=== PATIENT | male | born 1945 | race Caucasian/White ===

== ENCOUNTER → 2020-04-18 13:48 | Outpatient (BNVA) | payer MEDICARE, BC, SELFPAY | PROVIDERS: PCP Internal Medicine; Visit Provider Internal Medicine Cardiovascular Disease | DX: I48.0 Paroxysmal atrial fibrillation (principal) | CPT/HCPCS: 93005; 99212 ==

== ENCOUNTER → 2020-08-25 13:16 | Outpatient (BNVA) | payer MEDICARE, BC, SELFPAY | PROVIDERS: PCP Internal Medicine; Visit Provider Urology | DX: R33.9 Retention of urine, unspecified (principal); R39.12 Poor urinary stream | CPT/HCPCS: 99212 ==

== ENCOUNTER → 2021-04-05 12:57 | Outpatient (REF) | payer MEDICARE, BC, SELFPAY ==
--- NOTE | 2021-04-05 12:59 | CA_ITS ---
Transthoracic Echocardiogram Patient (Last, First, Middle): Evan Mar, Gender: Male Date of : 1945 Age: 75 Procedure Date: 04/05/2021 Procedure Type: Transthoracic Echocardiogram Location: OP Height: 177.8 cm Weight: 56.7 kg BSA: 1.71 m2 Heart Rate: bpm BP: 103 / 63 mmHg Hydrogenation Still Operator: TRES Referring MD: Riley Lehman MD Account General Manager: Riley Lehman MD Symptoms: I48.0 - Paroxysmal atrial fibrillation Study Quality: Fair ECG Rhythm: Sinus Conclusions: - Essentially normal study Findings Left Ventricle Normal left ventricular size, thickness, and systolic function. The visually estimated ejection fraction is between 60-65%. Spectral Doppler is indicative of a normal filling pattern. Right Ventricle Normal right ventricular cavity size and systolic function. Atria Both atria are normal in size. Interatrial shunt cannot be excluded. Aortic Valve Normal aortic valve structure and function. There is no aortic valve stenosis. There is no aortic valve regurgitation. Mitral Valve There is mild anterior and posterior mitral leaflet thickening. There is trace mitral valve regurgitation. There is no mitral valve stenosis. Pulmonic Valve The pulmonic valve was not well visualized. Tricuspid Valve Likely normal tricuspid valve structure and function. There is trace tricuspid valve regurgitation. The right ventricular systolic pressure is normal. The right ventricular systolic pressure is 27 mmHg. Normal right atrial pressure. There is no evidence of pulmonary hypertension. Great Vessels All visible segments of the aorta are normal in size. The pulmonary artery was not well visualized. Venous The inferior vena cava is mildly dilated and collapses greater than 50% with inspiration. Pericardium/Pleural There is no evidence of pericardial effusion. Prior Study Comparison No significant change compared to prior study dated: 12/24/2017. Measurements 2D Linear Measurements IVSd: 0.96 0.6-0.9/0.6-1.0 cm LVIDd: 4.24 3.9-5.3/4.2-5.9 cm LVIDd Index: 2.48 2.4-3.2/2.2-3.1 cm/m2 LVIDs: 2.54 2.0-3.6 cm LVPWd: 0.91 0.7-1.1 cm Ao Root: 3.80 2.1-3.5 cm LA Diam: 2.50 2.7-3.8/3.0-4.0 cm LAIDs Index: 1.46 1.5-2.3 cm/m2 LV Mass: 158.18 67-162/88-224 g LV Mass Index: 92.50 43-95/49-115 g/m2 LVOT Diam: 2.20 3.0+(-)1.3 cm 2D Systolic Function EF 4C: 64.10 >55% EF 2C: 62.60 >55% EF BiP: 63.10 >55% Mitral Valve MV Pk E: 0.68 MV PK A: 0.48 MV Decel Time: 237.00 E/A: 1.40 E'Lateral: 11.40 E'Medial: 8.81 E/E' Med: 7.70 E/E' Lat: 5.90 PHT: 69.00 MVA PHT: 3.19 Decel [place]: 2.86 Aortic Valve AoV Pk Tray: 0.72 AoV Mn Tray: 0.52 AoV VTI: 0.18 AoV Pk Grad: 2.00 Aov Mn Grad: 1.00 JAVED Cont.VTI: 2.80 LVOT LVOT Pk Tray: 0.63 LVOT Mn Tray: 0.42 LVOT VTI: 0.13 LVOT Pk Grad: 2.00 LVOT Mn Grad: 1.00 LVOT Diam: 2.20 LVOT Area: 3.80 Diastolic Function MV Pk E: 0.68 MV Pk A: 0.48 E/A: 1.40 E'Medial: 8.81 E/E' Med: 7.70 E' Laterial: 11.40 E/E' Lat: 5.90 Right Ventricle TAPSE (mm): 23.30 TVS' Tray: 12.00 Tricuspid Valve TR Pk Tray: 2.20 TR Pk Grad: 19.00 RA Press: 8.00 RVSP: 27.00 Great Vessels Aorta Ao Root-2D: 3.80 2.0-3.7 cm Ao Asc: 3.60 2.1-3.4 cm Ao Arch: 3.30 Updated in Other Vendor System with Status of Final Riley Lehman MD electronically signed on 04/06/2021 12:52:47 PM with status of Final
== END ==
LOC: HO.CARD 12:57
PROVIDERS: Visit Provider Internal Medicine Cardiovascular Disease
DX: I48.0 Paroxysmal atrial fibrillation (principal)
CPT/HCPCS: 93306

== ENCOUNTER → 2021-04-19 14:08 | Outpatient (BNVA) | payer MEDICARE, BC, SELFPAY | PROVIDERS: PCP Internal Medicine; Referring Provider Internal Medicine; Visit Provider Internal Medicine Cardiovascular Disease | DX: I48.0 Paroxysmal atrial fibrillation (principal); Z79.899 Other long term (current) drug therapy | CPT/HCPCS: 93005; 99212 ==

== ENCOUNTER 2021-07-25 08:56 | Outpatient (REF) | payer MEDICARE, BC, SELFPAY ==
[2021-07-25 11:05] LABS: MANUAL DIFF FLAG NO
[2021-07-25 11:34] LABS: Appearance Urine CLEAR; Color Urine YELLOW; Glucose Urine UA NEG (NEG); Leukocyte Esterase Urine NEG (NEG); Nitrite Urine NEG (NEG); Urine Blood NEG (NEG); Urine Ketones NEG (NEG); Urine Protein NEG (NEG-TRACE)
[2021-07-25 11:39] LABS: Alanine Aminotransferase 23 U/L (0-40); Albumin Level 4.1 g/dL (3.5-5.0); Alkaline Phosphatase 77 U/L (39-117); Anion Gap 10 (12-20); Aspartate Amino Transferase 25 U/L (5-37); Bilirubin Total 0.6 mg/dL (0.0-1.0); Blood Urea Nitrogen 17 mg/dL (9-16); Calcium 9.4 mg/dL (8.4-10.2); Carbon Dioxide 28 mmol/L (22-29); Chloride 105 mmol/L (96-108); Cholesterol 213 mg/dL; Estimated Glomerular Filt Rate > 60; Glucose Fasting 95 mg/dL (60-99); HDL Cholesterol 64 mg/dL; LDL Cholesterol Calculated 137 mg/dl; Sodium 139 mmol/L (135-145); Total Protein 6.5 g/dL (6.5-8.0); Triglycerides 62 mg/dL
[2021-07-25 11:42] LABS: Basophils Percent Auto 0.7 % (0-2); Eosinophils Absolute Auto 0.2 X10*3/uL (0.0-0.4); Eosinophils Percent Auto 4.3 % (0-4); Hematocrit 41.8 % (42.0-52.0); Hemoglobin 13.5 g/dl (14.0-18.0); Imm Gran Abs Auto 0.01 X10*3/uL (0.00-0.03); Imm Gran Pct Auto 0.2 % (0.0-0.4); Lymphocytes Absolute Auto 1.2 X10*3/uL (1.2-4.9); Lymphocytes Percent Auto 28.8 % (20-40); Mean Corpuscular HGB Conc 32.3 g/dl (31.0-36.0); Mean Corpuscular Volume 92.9 fL (80.0-98.0); Mean Platelet Volume 10.7 fL (9.4-12.4); Monocytes Absolute Auto 0.6 X10*3/uL (0.1-1.2); Monocytes Percent Auto 14.5 % (2-11); Neutrophils Absolute Auto 2.2 x10*3/uL (2.0-8.3); Neutrophils Percent Auto 51.5 % (45-73); Platelet Count 195 X10*3/uL (160-400); Red Cell Distribution Width 12.7 % (11.0-16.0); White Blood Count 4.2 X10*3/uL (4.8-10.8)
[2021-07-25 12:01] LABS: Creatinine Urine 131.63 mg/dL; Microalbumin Urine < 5.0 mg/L
[2021-07-25 12:07] LABS: Prostate Specific Antigen Scr 0.39 ng/mL (<0.05-4.0)
== END 2021-07-25 08:57 | disposition home or self-care (01) ==
LOC: HO.WFDLDS 08:56
PROVIDERS: Visit Provider Family Medicine
DX: Z00.00 Encounter for general adult medical examination without abnormal findings (principal); I10 Essential (primary) hypertension; Z12.5 Encounter for screening for malignant neoplasm of prostate
CPT/HCPCS: 36415; 80053; 80061; 81003; 82043; 84153; 84443; 85025

== ENCOUNTER → 2022-04-08 15:07 | Outpatient (BNVA) | payer MEDICARE, BC, SELFPAY | PROVIDERS: PCP Family Medicine; Referring Provider Family Medicine; Visit Provider Internal Medicine Cardiovascular Disease | DX: I48.0 Paroxysmal atrial fibrillation (principal); Z79.899 Other long term (current) drug therapy | CPT/HCPCS: 93005; 99212 ==

== ENCOUNTER 2022-05-14 09:45 | Outpatient (REF) | payer MEDICARE, BC, SELFPAY ==
[2022-05-14 11:40] LABS: MANUAL DIFF FLAG NO
[2022-05-14 11:48] LABS: Basophils Absolute Auto 0.1 X10*3/uL (0.0-0.2); Basophils Percent Auto 1.1 % (0-2); Eosinophils Absolute Auto 0.3 X10*3/uL (0.0-0.4); Eosinophils Percent Auto 5.5 % (0-4); Hematocrit 42.6 % (42.0-52.0); Imm Gran Abs Auto 0.01 X10*3/uL (0.00-0.03); Imm Gran Pct Auto 0.2 % (0.0-0.4); Lymphocytes Absolute Auto 1.3 X10*3/uL (1.2-4.9); Lymphocytes Percent Auto 28.4 % (20-40); Mean Corpuscular HGB Conc 32.9 g/dl (31.0-36.0); Mean Corpuscular Volume 94.2 fL (80.0-98.0); Mean Platelet Volume 10.9 fL (9.4-12.4); Monocytes Absolute Auto 0.6 X10*3/uL (0.1-1.2); Monocytes Percent Auto 13.7 % (2-11); Neutrophils Absolute Auto 2.3 x10*3/uL (2.0-8.3); Neutrophils Percent Auto 51.1 % (45-73); Platelet Count 203 X10*3/uL (160-400); Red Blood Count 4.52 X10*6/uL (4.60-5.80); White Blood Count 4.5 X10*3/uL (4.8-10.8)
[2022-05-14 12:22] LABS: Anion Gap 9 (12-20); Blood Urea Nitrogen 17 mg/dL (9-16); Calcium 9.2 mg/dL (8.4-10.2); Carbon Dioxide 30 mmol/L (22-29); Chloride 102 mmol/L (96-108); Cholesterol 227 mg/dL; Estimated Glomerular Filt Rate > 60; Glucose Random 89 mg/dL (60-115); HDL Cholesterol 72 mg/dL; LDL Cholesterol Calculated 142 mg/dl; Sodium 137 mmol/L (135-145); Triglycerides 65 mg/dL
== END 2022-05-14 09:46 | disposition home or self-care (01) ==
LOC: HO.WFDLDS 09:45
PROVIDERS: Visit Provider Family Medicine
DX: Z00.00 Encounter for general adult medical examination without abnormal findings (principal); D64.9 Anemia, unspecified; E78.00 Pure hypercholesterolemia, unspecified
CPT/HCPCS: 36415; 80048; 80061; 85025

== ENCOUNTER → 2022-06-18 13:24 | Outpatient (BNVA) | payer MEDICARE, BC, SELFPAY | PROVIDERS: PCP Family Medicine; Visit Provider Physician Assistant | DX: R63.4 Abnormal weight loss (principal); R21 Rash and other nonspecific skin eruption | CPT/HCPCS: 99202 ==

== ENCOUNTER 2022-06-19 14:07 | Outpatient (REF) | payer MEDICARE, BC, SELFPAY ==
--- NOTE | ~2022-06-19 | XR_ITS ---
EXAMINATION: XR CHEST CLINICAL INFORMATION: Question of tuberculosis; abnormal weight loss. COMPARISON: None available. TECHNIQUE: Frontal and lateral views of the chest were obtained. FINDINGS: The heart, great vessels, pulmonary vasculature and mediastinum are normal. There is hyperinflation, with increased retrosternal lucency. There is biapical pleural and parenchymal scarring. Left apical pleural calcifications are noted. Benign, calcified bilateral upper lobe granulomas are noted. There is a very small left pleural effusion. No pneumothorax is seen. There is no acute osseous abnormality. XR/XR chest 2V IMPRESSION: There are sequelae of tuberculosis, including biapical pleural and parenchymal scarring, left apical pleural calcifications and calcified granulomas. A minimal left pleural effusion is seen. No superimposed infiltrate or congestive heart failure is noted.
[2022-06-19 16:35] LABS: C Reactive Protein 1.72 mg/dL (< or = 0.50)
[2022-06-19 16:40] LABS: Erythrocyte Sedimentation Rate 19 MM/HR (0-15)
[2022-06-19 16:53] LABS: Prostate Specific Antigen Scr 0.27 ng/mL (<0.05-4.0); Thyroid Stimulating Hormone 1.17 uIU/mL (0.32-4.0)
[2022-06-26 04:44] LABS: Transglutaminase IgA <1.0 U/mL
[2022-06-26 14:09] LABS: Endomysial IgA Antibody Negative (Negative)
== END 2022-06-19 14:08 | disposition home or self-care (01) ==
LOC: HO.XRAY 14:07
PROVIDERS: PCP Family Medicine; Visit Provider Physician Assistant
DX: Z12.5 Encounter for screening for malignant neoplasm of prostate (principal); R63.4 Abnormal weight loss; R19.8 Other specified symptoms and signs involving the digestive system and abdomen; R19.7 Diarrhea, unspecified; R21 Rash and other nonspecific skin eruption
CPT/HCPCS: 36415; 71046; 84153; 84443; 85652; 86140; 86231; 86364

== ENCOUNTER 2022-07-09 12:43 | Outpatient (REF) | payer MEDICARE, BC, SELFPAY ==
[2022-07-09 16:52] LABS: Blood Urea Nitrogen 23 mg/dL (9-16); Estimated Glomerular Filt Rate > 60
== END 2022-07-09 12:44 | disposition home or self-care (01) ==
LOC: HO.WFDLDS 12:43
PROVIDERS: Visit Provider Physician Assistant
DX: R63.4 Abnormal weight loss (principal)
CPT/HCPCS: 36415; 82565; 84520

== ENCOUNTER 2022-07-15 09:35 | Outpatient (REF) | payer MEDICARE, BC, SELFPAY ==
--- NOTE | ~2022-07-15 | CT_ITS ---
EXAMINATION: CT ABDOMEN AND PELVIS WITH CONTRAST CLINICAL INFORMATION: Male with abnormal weight loss COMPARISON: None available. TECHNIQUE: Multidetector volumetric images were obtained from the superior aspect of the liver through the pubic symphysis following administration 85 mL of Omnipaque 350 intravenous contrast. Sagittal and coronal reformatted images were obtained on the technologist's workstation. Oral contrast: Yes This CT examination was performed using dose optimization techniques as appropriate, variously including the following: *Automated exposure control *Adjustment of mA and/or kV according to patient size (this includes techniques or standardized protocols for targeted exams where dose is matched to indication/reason for exam; i.e. extremities or head) *Use of iterative reconstruction technique DLP: 278 mGy-cm FINDINGS: LUNG BASES: The visualized lung bases are unremarkable. LIVER, GALLBLADDER, AND BILIARY TREE: The liver is normal in size, shape, and attenuation. No focal hepatic lesion or biliary ductal dilatation is present. The gallbladder is unremarkable with no evidence of radiopaque gallstones, gallbladder wall thickening, or obvious pericholecystic inflammatory changes. PANCREAS: Unremarkable. SPLEEN: Unremarkable. ADRENAL GLANDS: Unremarkable. KIDNEYS AND URETERS: There is 1.4 cm cyst in the upper pole of right kidney BLADDER: Unremarkable. GASTROINTESTINAL TRACT: There is large amount of retained feces consistent with constipation loops of small bowel are unremarkable. Evaluation of mesenteric is limited due to paucity of mesenteric fat ABDOMINAL WALL: No significant hernia is appreciated. LYMPH NODES: There is inguinal lymphadenopathy VASCULAR: Unremarkable. The largest lymph node on the right measured 1.4 cm and on the left measured 1.7 cm. PELVIC VISCERA: Prostate is enlarged OSSEOUS STRUCTURES: There is diffuse osteopenia and mild degenerative changes in lumbar spine but no lytic or blastic lesions seen. CT/CT abdomen pelvis w IV con IMPRESSION: 1. Constipation. 2. Bilateral mild inguinal lymphadenopathy. 3. Right small renal cyst. 4. Prostatomegaly. Fleischner guidelines were followed.
[2022-07-15] MEDS: iohexoL 350 MG/ML 100 ML INFUS..BTL 85 ML IV (10:19)
== END 2022-07-15 09:36 | disposition home or self-care (01) ==
LOC: HO.CT 09:35
PROVIDERS: PCP Family Medicine; Visit Provider Physician Assistant
DX: R63.4 Abnormal weight loss (principal)
CPT/HCPCS: 74177; Q9967

== ENCOUNTER → 2022-08-13 14:00 | Outpatient (BNVA) | payer MEDICARE, BC, SELFPAY | PROVIDERS: PCP Family Medicine; Visit Provider Nurse Practitioner Family | DX: A15.0 Tuberculosis of lung (principal) | CPT/HCPCS: 99202 ==

== ENCOUNTER 2022-08-16 12:15 | Outpatient (REF) | payer MEDICARE, BC, SELFPAY ==
[2022-08-16 13:57] LABS: Prostate Specific Antigen 0.25 ng/mL (<0.05-4.0)
[2022-08-19 13:09] LABS: TS Negative Control Passed; TS Panel A 0; TS Panel B 0; TS Positive Control Passed; TSpotTB Negative (Negative)
== END 2022-08-16 12:16 | disposition home or self-care (01) ==
LOC: HO.WFDLDS 12:15
PROVIDERS: Urology; Visit Provider Nurse Practitioner Family
DX: Z12.5 Encounter for screening for malignant neoplasm of prostate (principal); A15.0 Tuberculosis of lung; N13.8 Other obstructive and reflux uropathy; N40.1 Benign prostatic hyperplasia with lower urinary tract symptoms; R39.12 Poor urinary stream
CPT/HCPCS: 36415; 84153; 86481

== ENCOUNTER 2022-10-02 16:24 | Outpatient (AMB) | payer MEDICARE, BC, SELFPAY ==
[2022-10-02 16:29] VITALS: BP 100/60; PULSE 64; O2SAT 97; BMI 18.2
--- NOTE | 2022-10-02 16:29 | MHC.PC.OV ---
Vital Signs 10/02/22 16:29 Height 5 ft 10 in Weight 127 lb BMI 18.2 BP 100/60 Blood Pressure Location Lt brachial Position Sitting Pulse 64 Pulse Source Pulse Oximeter Pulse Oximetry (%) 97 Intake Visit Reasons: f/u underweight and chronic conditions Intake Note: Patient is here to follow up on underweight and chronic conditions. Patient is concerned about inflammation in both legs, too, today. Allergies aspirin Allergy (Unknown, Verified 10/02/22 16:36) Unknown Tobacco use date assessed: 10/02/22 Fall risk assessment: No Falls in past year Last assessed Fall Risk: 10/02/22 Dental Screening Dental Screen Date: 10/02/22 Did you have a dental visit in the last 12 months?: Yes Did you have a dental problem in the last 6 months where you did not have access to dental care?: No Was dental information given to patient?: No HPI f/u underweight and chronic conditions HPI Details 77 y/o male presents to f/u underweight status. Had seen GI 06/18/22. They report weight loss over past few years but had been stable. Weight today 127lbs with a BMI of 18.2. [facility] Medical History H/O urinary retention Incomplete emptying of bladder Paroxysmal atrial fibrillation Poor urinary stream Surgical History History of radiofrequency ablation (RFA) procedure for cardiac arrhythmia Family History Father No problems noted. Mother Afib Social History Housing: House Patient Tobacco Use Status: Never used Tobacco e-Cigarette/Vaping Use: Never Used Second Hand Smoke Exposure: No service: Yes Current occupational status: retired Current occupational exposures/hazards: No Cognitive needs: No Hearing needs: No Vision needs: No Questionnaire PHQ-9 Over the last 2 weeks, how often have you been bothered by any of the following problems? 1. Little interest or pleasure in doing things: not at all 2. Feeling down, depressed, or hopeless: not at all 3. Trouble falling or staying asleep, or sleeping too much: not at all 4. Feeling tired or having little energy: not at all 5. Poor appetite or overeating: not at all 6. Feeling bad about yourself - or that you are a failure or have let yourself or your family down: not at all 7. Trouble concentrating on things, such as reading the newspaper or watching television: not at all 8. Moving or speaking so slowly that other people could have noticed. Or the opposite - being so fidgety or restless that you have been moving around a lot more than usual: not at all 9. Thoughts that you would be better off or of hurting yourself in some way: not at all Total score: 0 Source: Developed by Drs. Thomas Gerard, Minerva Gonzales, Gunnra Baca and colleagues, with an educational juan from [employer]. Thrive Questionnaire I am a: Patient What is your living situation today?: I have a steady place to live Within the past 12 months, did the food you bought not last and you didn't have the money to get more?: Never true Within the past 12 months, did you worry whether your food would run out before you got money to buy more?: Never true Do you have trouble paying for medicines?: No Do you have trouble getting transportation to medical appointments?: No Do you have trouble paying your heating and electricity bill?: No Do you have trouble taking care of your child, family member or friend?: No Do you have trouble with day-to-day activities such as bathing, preparing meals, shopping, managing finances, etc.?: No Are you currently unemployed and looking for a job?: No Are you interested in more education?: No AUDIT C Alcohol Use Questionnaire (AUDIT-C) 1. How often do you have a drink containing alcohol?: Never 3. How often do you have six or more drinks on one occasion?: Never Total Score: 0 CARLOS-7 AMB Questionnaire CARLOS-7 Date CARLOS - 7 assessed: 10/02/22 Feeling nervous, anxious, or on edge: 0 = Not at all Not being able to stop or control worryin = Not at all Worrying too much about different things: 0 = Not at all Trouble relaxin = Not at all Being so restless that it is hard to sit still: 0 = Not at all Becoming easily annoyed or irritable: 0 = Not at all Feeling afraid as if something awful might happen: 0 = Not at all Total CARLOS-7 score (0-4 normal; 5-9 mild; 10-14 moderate; 15-21 severe): 0 Source: Developed by Drs. Thomas Gerard, Minerva Gonzales, Gunnar Baca and colleagues, with an educational juan from [employer]. Review of Systems Const Denies chills, Denies fatigue, Denies fever(s), Denies headache(s) and Denies weakness ENT Denies dizziness and Denies headache(s) Card Denies dyspnea Resp Denies cough, Denies dyspnea, Denies wheezing and Denies other (shortness of breath) Musc Denies numbness and Denies tingling Neuro Denies dizziness, Denies headache(s), Denies numbness, Denies tingling and Denies weakness Psych Denies anxiety and Denies depression Endo Denies fatigue Aller/Immun Denies wheezing Physical exam (Primary Care) Vital Signs: Last Vital Signs Pulse 64 10/02/22 16:29 BP 100/60 10/02/22 16:29 Pulse Ox 97 10/02/22 16:29 BMI result Body Mass Index 18.2 Tobacco/Smoking Status: Tobacco use Status Tobacco use date assessed 10/02/22 10/02/22 16:39 Patient Tobacco Use Status Never used Tobacco 10/02/22 16:39 e-Cigarette/Vaping Use Never Used 10/02/22 16:39 PHQ-9: PHQ-9 Score PHQ-9: Total score 0 10/02/22 17:02 Const General: well developed; No acute distress Nutritional Appearance: underweight Orientation/consciousness: patient oriented x3 [facility] Head: Yes normocephalic and Yes atraumatic Eyes General: appearance normal, both eyes and all related structures Pupils: Equal, round and reactive pupils present EOM: EOMs intact bilaterally Resp Effort & Inspection: normal respiratory effort Auscultation: clear to auscultation bilaterally Cardio Rate: regular rate Rhythm: regular rhythm Heart sounds: S1 normal heart sound present, S2 normal heart sound present, no gallops, no murmurs and no rubs Neuro General: patient oriented x3 and gait normal Cranial nerves: Yes Equal, round and reactive pupils present Psych Affect: normal affect Assessment and Plan Assessment & Plan (1) Underweight: Code(s): R63.6 - Underweight Plan: Underweight but weight is fairly steady. No organic cause determined and he is seen gastroenterology Will have him see a picker tender At this point, If unable to gain weight still, would follow cautiously. (2) Rash: Code(s): R21 - Rash and other nonspecific skin eruption Plan: Venous stasis dermatitis and he is followed by Dermatology Offered a stronger steroid but he would like to continue with multimedia manager plan He can let me know if he is not improving or for worsens (3) Failure to thrive in adult: Code(s): R62.7 - Adult failure to thrive Plan: As above, referred to nutrition Orders: Referrals Nutrition/Dietitian Referral R62.7 - Adult failure to thrive, R63.6 - Underweight Coding Level of Care Code Est Pt Level 3 (36049) Diagnoses Underweight R63.6 Rash R21 Failure to thrive in adult R62.7
== END 2022-10-02 17:25 | disposition home or self-care (01) ==
PROVIDERS: PCP Family Medicine; Visit Provider Family Medicine
DX: R63.6 Underweight (principal); R21 Rash and other nonspecific skin eruption; R62.7 Adult failure to thrive
CPT/HCPCS: 99213

== ENCOUNTER 2022-10-09 14:44 | Outpatient (AMB) | payer MEDICARE, BC, SELFPAY ==
--- NOTE | 2022-10-09 14:55 | AM.OFFVISNUR ---
Intake Intake Visit Reasons: ekg only Allergies aspirin Allergy (Unknown, Verified 10/09/22 14:55) Unknown Nursing Note 6 month EKG. Patient on Flecainide 50 MG BID. EKG shows heart rate of 56 bpm. Patient reports feeling good no complaints. EKG handed to Dr. Lehman for review. Office Procedures EKG [id number], Complete Coding Diagnoses CPT Codes EKG - CPT: 15015-[id number], Complete ([id number])
== END 2022-10-09 16:02 | disposition home or self-care (01) ==
PROVIDERS: PCP Family Medicine; Referring Provider Family Medicine; Visit Provider Internal Medicine Cardiovascular Disease
DX: I44.0 Atrioventricular block, first degree (principal)
CPT/HCPCS: 93010

== ENCOUNTER → 2022-10-09 14:44 | Outpatient (BNVA) | payer MEDICARE, BC, SELFPAY | PROVIDERS: PCP Family Medicine; Referring Provider Family Medicine; Visit Provider Internal Medicine Cardiovascular Disease | DX: I49.8 Other specified cardiac arrhythmias (principal); I44.0 Atrioventricular block, first degree | CPT/HCPCS: 93005 ==

== ENCOUNTER 2023-01-09 13:24 | Outpatient (AMB) | payer MEDICARE, BC, SELFPAY ==
[2023-01-09 13:27] VITALS: BP 100/64; PULSE 62; O2SAT 94; BMI 17.5
--- NOTE | 2023-01-09 13:27 | MHC.PC.OV ---
Vital Signs 01/09/23 13:27 Height 5 ft 10 in Weight 122 lb 4 oz BMI 17.5 BP 100/64 Blood Pressure Location Lt brachial Position Sitting Pulse 62 Pulse Source Pulse Oximeter Pulse Oximetry (%) 94 Oxygen Delivery Method Room Air Intake Visit Reasons: f/u underweight and chronic conditions Intake Note: Patient is here to follow up on being underweight and chronic conditions. Allergies aspirin Allergy (Unknown, Verified 01/09/23 13:29) Unknown Tobacco use date assessed: 01/09/23 Fall risk assessment: No Falls in past year Last assessed Fall Risk: 01/09/23 HPI f/u underweight and chronic conditions HPI Details 77 y/o male presents to f/u underweight and chronic conditions. Had referred him to nutrition. Pt continues to lose weight - 127lbs in September to 122 lbs today 01/09/23. Pt otherwise feels okay. He reports he is breathing okay and eating okay. He reports he had developed an eczema which has mostly resolved itself. [facility] Medical History Incomplete emptying of bladder Poor urinary stream H/O urinary retention Paroxysmal atrial fibrillation Surgical History History of radiofrequency ablation (RFA) procedure for cardiac arrhythmia Family History Father No problems noted. Mother Afib Social History Housing: House Patient Tobacco Use Status: Never used Tobacco e-Cigarette/Vaping Use: Never Used Second Hand Smoke Exposure: No service: Yes Current occupational status: retired Current occupational exposures/hazards: No Cognitive needs: No Hearing needs: No Vision needs: No Questionnaire CARLOS-7 AMB Questionnaire CARLOS-7 Date CARLOS - 7 assessed: 10/02/22 Source: Developed by Drs. Thomas Gerard, Minerva Gonzales, Gunnar Baca and colleagues, with an educational juan from [employer]. Review of Systems Const Denies chills, Denies fatigue, Denies fever(s), Denies headache(s) and Denies weakness ENT Denies dizziness and Denies headache(s) Card Denies dyspnea Resp Denies cough, Denies dyspnea, Denies wheezing and Denies other (shortness of breath) Musc Denies numbness and Denies tingling Skin/Breast Reports rash Neuro Denies dizziness, Denies headache(s), Denies numbness, Denies tingling and Denies weakness Psych Denies anxiety and Denies depression Endo Denies fatigue Aller/Immun Denies wheezing Physical exam (Primary Care) Vital Signs: Last Vital Signs Pulse 62 01/09/23 13:27 BP 100/64 01/09/23 13:27 Pulse Ox 94 01/09/23 13:27 Oxygen Delivery Method Room Air 01/09/23 13:27 BMI result Body Mass Index 17.5 Tobacco/Smoking Status: Tobacco use Status Tobacco use date assessed 01/09/23 01/09/23 13:30 Patient Tobacco Use Status Never used Tobacco 01/09/23 13:30 e-Cigarette/Vaping Use Never Used 01/09/23 13:30 Const General: well developed; No acute distress Nutritional Appearance: underweight Orientation/consciousness: patient oriented x3 [facility] Head: Yes normocephalic and Yes atraumatic Eyes General: appearance normal, both eyes and all related structures Pupils: Equal, round and reactive pupils present EOM: EOMs intact bilaterally Resp Effort & Inspection: normal respiratory effort Auscultation: clear to auscultation bilaterally Cardio Rate: regular rate Rhythm: regular rhythm Heart sounds: S1 normal heart sound present, S2 normal heart sound present, no gallops, no murmurs and no rubs Neuro General: patient oriented x3 and gait normal Cranial nerves: Yes Equal, round and reactive pupils present Psych Affect: normal affect Assessment and Plan Assessment & Plan (1) Underweight: Code(s): R63.6 - Underweight Plan: Has?been?negative?and?patient?has?also?seen?GI?and?Pulmonary. On?discussion?with?patient?today,?he?seems?to?restrict?many?foods?due?to?concerns?that?they?will?affect?his?atrial?fibrillation. Encouraged?him?to?increase?foods?that?do?not?cause?him?any?problems. Also?encouraged?a?protein?shake?which?he?says?he?has?been?able?to?take?in?but?only?in?small?amounts?as?it?fills?him?up?quickly. He?will?work?on?trying?to?sip?this?throughout?his?day?to?get?a?complete?protein?shake?in?each?day. He?has?also?rescheduled?an?appointment?with?the?solid waste management engineer?as?he?missed?that?appointment. (2) Failure to thrive in adult: Code(s): R62.7 - Adult failure to thrive Plan: As?above (3) Rash: Code(s): R21 - Rash and other nonspecific skin eruption Plan: Ongoing?rash?and?patient?is?followed?by?dermatology Will?ask?him?to?try?a?daytime?antihistamine-Zyrtec He?can?also?use?a?topical?steroid Follow-up?with?dermatology?as?recommended (4) Immunization counseling: Code(s): Z71.85 - Encounter for immunization safety counseling Plan: Patient?inquires?about?RSV?vaccine?and?I?recommended?this. Medications: New cetirizine (Allergy Relief (cetirizine)) 10 mg PO DAILY 90 tabs 2RF 90 days Changed From betamethasone dipropionate 0.05% (Sernivo) 1 appl topical BID To betamethasone dipropionate 0.05% (Sernivo) 1 appl topical BID 120 mL 1RF 30 days Coding Level of Care Code Est Pt Level 4 (08474) Diagnoses Underweight R63.6 Failure to thrive in adult R62.7 Rash R21 Immunization counseling Z71.85
== END 2023-01-09 14:38 | disposition home or self-care (01) ==
PROVIDERS: PCP Family Medicine; Visit Provider Family Medicine
DX: R63.6 Underweight (principal); R62.7 Adult failure to thrive; R21 Rash and other nonspecific skin eruption; Z71.85 Encounter for immunization safety counseling
CPT/HCPCS: 99214

== ENCOUNTER 2023-01-10 09:05 | Outpatient (AMB) | payer MEDICARE, BC, SELFPAY ==
--- NOTE | 2023-01-10 09:12 | A.OFFVIS_ITS ---
Intake Vital Signs 01/10/23 09:13 Height 5 ft 10 in Weight 121 lb 4.068 oz BMI 17.4 BP 106/66 Blood Pressure Location Lt brachial Position Sitting Pulse 68 Intake Visit Reasons: fu + ekg Intake Note: Follow-up with ekg Pickers Material Handlers Required: No Allergies aspirin Allergy (Unknown, Verified 01/09/23 13:29) Unknown Medication List - Last Reconciled 01/10/23 by Riley Lehman MD betamethasone dipropionate 0.05% (Sernivo) 1 appl topical BID 30 days flecainide 100 mg PO Q12H 90 days metoprolol succinate ER 12.5 mg (1/2 x 25 mg) PO DAILY 90 days HPI HPI Comments History of Present Illness Details Ramón comes for follow-up. With increased dose of flecainide at 100 mg b.i.d. is feeling well and has had no recurrent palpitations or episodes of atrial fibrillation. Overall doing well. Remains active and denies any exertional symptoms of chest pain or shortness of breath. No orthopnea, PND, leg edema. He did have issues with venous stasis of his legs, has seen dermatology and currently wearing venous stockings. No recurrent problems with that. No lightheadedness, syncope. Tolerating medications well. [facility] Medical History Incomplete emptying of bladder Poor urinary stream H/O urinary retention Paroxysmal atrial fibrillation Surgical History History of radiofrequency ablation (RFA) procedure for cardiac arrhythmia Family History Father No problems noted. Mother Afib Social History Housing: House Patient Tobacco Use Status: Never used Tobacco e-Cigarette/Vaping Use: Never Used Second Hand Smoke Exposure: No service: Yes Current occupational status: retired Current occupational exposures/hazards: No Cognitive needs: No Hearing needs: No Vision needs: No Review of Systems Const Denies chills, Denies fatigue, Denies fever(s), Denies frequent falls, Denies weakness, Denies weight gain and Denies weight loss ENT Denies dizziness Card Denies chest pain, Denies leg edema, Denies lightheadedness, Denies palpitations, Denies dyspnea, Denies dyspnea on exertion, Denies orthopnea and Denies other (loss of consciousness) Resp Denies cough, Denies dyspnea and Denies dyspnea on exertion GI Denies hematochezia and Denies change in stool character Musc Denies abnormal gait, Denies muscle weakness, Denies numbness, Denies radiating pain into limb and Denies tingling Neuro Denies abnormal gait, Denies dizziness, Denies frequent falls, Denies numbness, Denies tingling and Denies weakness Endo Denies fatigue and Denies palpitations Physical Exam Vital Signs: Last Vital Signs Pulse 68 01/10/23 09:13 BP 106/66 01/10/23 09:13 BMI result Body Mass Index 17.4 Const General: cooperative, comfortable, alert and awake Nutritional Appearance: thin Orientation/consciousness: patient oriented x3 Limitations: no limitations Neck Neck: Yes trachea midline, Yes supple and Yes no JVD Chest Chest palpation & inspection: normal inspection of the chest Resp Effort & Inspection: normal respiratory effort Auscultation: clear to auscultation bilaterally Cardio Jugular venous distension: no JVD Palpation: normal PMI Rate: regular rate Rhythm: regular rhythm Heart sounds: S1 normal heart sound present and S2 normal heart sound present Skin General skin exam: no rashes or lesions noted Neuro General: patient oriented x3 and no focal motor deficits Extrem General: Yes no clubbing, cyanosis or edema Psych Appearance: grossly normal Office Procedures EKG Details: EKG shows normal sinus rhythm with first-degree AV block with normal EKG [id number], Complete Assessment & Plan Assessment & Plan (1) Paroxysmal atrial fibrillation: Code(s): I48.0 - Paroxysmal atrial fibrillation Plan: Highly symptomatic paroxysmal atrial fibrillation this elderly gentleman doing well. CHADSVASc score is now 2. Recommend oral anticoagulation therapy with Eliquis. Risks and benefits were discussed with him. Check BMP today. Prescriptions have been provided. Continue flecainide at 100 mg b.i.d. along with low-dose of metoprolol therapy which is required to prevent rapid atrial flutter. Advised to call me with any new symptoms. Obtain echocardiogram 3 months time. Follow up in the clinic in 6 months for EKG and 1 year with me with EKG Orders: Orders Basic Metabolic Panel Today I48.0 - Paroxysmal atrial fibrillation CA echo transthoracic complete 3 Months I48.0 - Paroxysmal atrial fibrillation Medications: New apixaban (Eliquis) 5 mg PO BID 180 tabs 3RF I48.0 - Paroxysmal atrial fibrillation Changed From flecainide 50 mg (1/2 x 100 mg) PO Q12H 90 days 90 tabs 3RF To flecainide 100 mg PO Q12H 180 tabs 3RF 90 days Coding Level of Care Code Est Pt Level 4 (91091) Diagnoses Paroxysmal atrial fibrillation I48.0 CPT Codes EKG - CPT: 77475-[id number], Complete ([id number])
[2023-01-10 09:13] VITALS: BP 106/66; PULSE 68; BMI 17.4
== END 2023-01-10 09:55 | disposition home or self-care (01) ==
PROVIDERS: PCP Family Medicine; Visit Provider Internal Medicine Cardiovascular Disease
DX: I48.0 Paroxysmal atrial fibrillation (principal)
CPT/HCPCS: 93010; 99214

== ENCOUNTER → 2023-01-10 09:05 | Outpatient (BNVA) | payer MEDICARE, BC, SELFPAY | PROVIDERS: PCP Family Medicine; Visit Provider Internal Medicine Cardiovascular Disease | DX: I48.0 Paroxysmal atrial fibrillation (principal) | CPT/HCPCS: 93005; 99212 ==

== ENCOUNTER 2023-01-22 12:43 | Outpatient (AMB) | payer MEDICARE, BC, SELFPAY ==
[2023-01-22 12:56] VITALS: BMI 17.0
--- NOTE | 2023-01-22 12:56 | A.OFFVIS_ITS ---
Intake VS Expanded 01/22/23 12:56 02/04/23 14:49 Height 5 ft 10 in 5 ft 10 in Weight 118 lb 13.266 oz 119 lb BMI 17.0 17.1 Intake Visit Reasons: Underweight Allergies aspirin Allergy (Unknown, Verified 01/09/23 13:29) Unknown HPI Nutrition Presentation Details Pt presents for MNT for underweight/adult failure to thrive. The Pt was referred by Dr. Machelle Hurtado The Pt reports always watching what to eat, he reports having decreased a lot of foods (dairy, and high fat foods (pastries and breads) because of eczema which he reports has improved. Pt reports this has been going on for years. Pt is no t 100% certain if improvement in eczema is related to food discontinuation however Pt is now hesitant to including these foods back in diet. 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 Pt reports eating 3-5 meals a day B: oats banana/raisin blueberries, oatmilk made with water vs milk and 1 egg and 1 cup of juice L: 1/2 sand and soup , juice D: potatoes, chicken, green beans, water and juice snack: fruit and granola Physical activity: daily life activities CIP-Qvyhnnx-Zv.Jeor Equation Height 5 ft 10 in Weight 119 lb Resting Metabolic Rate 1286.49 Calculated Activity Level Sedentary Calories Needed to Maintain Weight 1543.79 Diagnosis Nutrition problem #1 underweight As related to (etiology) #1 refusal to eat As evidenced by (sign/symptom) #1 low BMI (BMI at 17 on 01/2023) Monitoring/Goals Nutrition problem monitoring weight Most Recent Diabetes Results: Creatinine 0.78 mg/dL (0.5-1.4) 07/09/22 Blood Urea Nitrogen 23 mg/dL (9-16) H 07/09/22 FOR[facility]LY [facility], [facility] Medical History Incomplete emptying of bladder Poor urinary stream H/O urinary retention Paroxysmal atrial fibrillation Surgical History History of radiofrequency ablation (RFA) procedure for cardiac arrhythmia Family History Father No problems noted. Mother Afib Social History Housing: House Patient Tobacco Use Status: Never used Tobacco e-Cigarette/Vaping Use: Never Used Second Hand Smoke Exposure: No service: Yes Current occupational status: retired Current occupational exposures/hazards: No Cognitive needs: No Hearing needs: No Vision needs: No Assessment & Plan Assessment & Plan (1) Underweight: Code(s): R63.6 - Underweight Plan: wt: 54 kg Est kcal needs as per MSJ: 1500 (40% carb, 30% protein/fat) Est fluid needs as per 30 ml/d: 1600 Est prot per day as per 1 g/kg bw: 54 Recommend fiber intake : 8-10 g per day and gradually increase to 25-28 g per day for women and 35-38 g for men or as tolerated Recommend sodium intake per day : less than 2000 mg Educated patient on: ( R = reviewed V = verbalizes understanding N/R = needs review N/A = not applicable * Food sources of protein: R * Differences between types of fats and role in diet (mono on saturated fat fatty acids, saturated fatty acids, trans fats): R, MUFA options * Adding additional calories from nutrient dense foods : R Patient Instructions: * Make oatmeal with (oatmilk, pea milk, try dairy alternatives fortified with more than 80 calories per cup) * Add 1 serving of protein at lunch and a t dinner along with 1 tsp of oil (additional to what you are already having) * Drink juice with the meals or dilute the juice with water (6 oz of juice of your choice and rest water) Coding Level of Care Code Nutr Indiv Intake (34219) Diagnoses Underweight R63.6 Time Spent (min) 30
[2023-02-04 14:49] VITALS: BMI 17.1
== END 2023-01-22 15:05 | disposition home or self-care (01) ==
PROVIDERS: PCP Family Medicine; Visit Provider Dietitian, Registered
DX: R63.6 Underweight (principal)

== ENCOUNTER → 2023-01-22 12:43 | Outpatient (BNVA) | payer MEDICARE, BC, SELFPAY | PROVIDERS: PCP Family Medicine; Visit Provider Dietitian, Registered | DX: R63.6 Underweight (principal) | CPT/HCPCS: 97802 ==

== ENCOUNTER 2023-03-03 13:58 | Outpatient (AMB) | payer MEDICARE, BC, SELFPAY ==
[2023-03-03 14:02] VITALS: BMI 17.9
--- NOTE | 2023-03-03 14:02 | MHC.AMNUTRGE ---
Intake VS Expanded 03/03/23 14:02 Height 5 ft 10 in Weight 125 lb 0.034 oz BMI 17.9 Comment Pt has 2 layers (sweater) Intake Visit Reasons: monitor/LVM Allergies aspirin Allergy (Unknown, Verified 01/09/23 13:29) Unknown HPI Nutrition Presentation Details Pt presents for MNT f/u for failure to thrive in adult. Pt reports working on including juices, diluting with water in place of plain water. Pt reports incorporating oatmeal as he was doing in the past. Pt reports having 5-6 small meals throughout the day. Pt reports having juices diluted with water and trying oatmeal and having peanut butter and jelly sandwich as snack Most Recent Diabetes Results: No Data to Display [facility] Medical History Incomplete emptying of bladder Poor urinary stream H/O urinary retention Paroxysmal atrial fibrillation Surgical History History of radiofrequency ablation (RFA) procedure for cardiac arrhythmia Family History Father No problems noted. Mother Afib Social History Housing: House Patient Tobacco Use Status: Never used Tobacco e-Cigarette/Vaping Use: Never Used Second Hand Smoke Exposure: No service: Yes Current occupational status: retired Current occupational exposures/hazards: No Cognitive needs: No Hearing needs: No Vision needs: No Assessment & Plan Assessment & Plan (1) Underweight: Code(s): R63.6 - Underweight Plan: wt: 54 kg, 57kg (2 layers shirt and sweater) (03/03/2023) Est kcal needs as per MSJ: 1500 (40% carb, 30% protein/fat) Est fluid needs as per 30 ml/d: 1600 Est prot per day as per 1 g/kg bw: 54 Recommend fiber intake : 8-10 g per day and gradually increase to 25-28 g per day for women and 35-38 g for men or as tolerated Recommend sodium intake per day : less than 2000 mg Educated patient on: ( R = reviewed V = verbalizes understanding N/R = needs review N/A = not applicable Food sources of protein: R Differences between types of fats and role in diet (mono on saturated fat fatty acids, saturated fatty acids, trans fats): R, MUFA options Adding additional calories from nutrient dense foods : R Patient Instructions: Continue to working on including a dessert a couple of times a week Continue incorporating fluids with nutrition ( juices with less water added, oatmilk, pea milk) have 2-3 snacks per day in between meals Add 1 tbsp of avocado/coconut oil to the meals per day Coding Level of Care Code Nutr Indiv Subseq (21661) Diagnoses Underweight R63.6 Time Spent (min) 30
== END 2023-03-03 14:41 | disposition home or self-care (01) ==
PROVIDERS: PCP Family Medicine; Visit Provider Dietitian, Registered
DX: R63.6 Underweight (principal)

== ENCOUNTER → 2023-03-03 13:58 | Outpatient (BNVA) | payer MEDICARE, BC, SELFPAY | PROVIDERS: PCP Family Medicine; Visit Provider Dietitian, Registered | DX: R63.6 Underweight (principal); Z68.1 Body mass index [BMI] 19.9 or less, adult | CPT/HCPCS: 97803 ==

== ENCOUNTER → 2023-03-31 12:51 | Outpatient (REF) | payer MEDICARE, BC, SELFPAY ==
--- NOTE | 2023-03-31 12:54 | CA_ITS ---
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 The visually estimated ejection fraction is between 60-65%. - Moderately increased right ventricular cavity size. - The inferior vena cava is dilated (3cm) and collapses greater than 50% with inspiration. - There is mild tricuspid valve regurgitation. Findings Left Ventricle Normal left ventricular cavity size. There is normal left ventricular wall thickness. The left ventricular systolic function is normal. The visually estimated ejection fraction is between 60-65%. There is no evidence of regional wall motion abnormalities. Diastolic function is normal for age. LV peak GLS -15.8%. Right Ventricle Moderately increased right ventricular cavity size. There is normal right ventricular systolic function. Atria Both atria are normal in size. Aortic Valve There is a normal trileaflet aortic valve. There is no aortic valve stenosis. There is no aortic valve regurgitation. Mitral Valve The mitral valve appears normal. There is no mitral valve regurgitation. There is no mitral valve stenosis. Pulmonic Valve The pulmonic valve is likely normal. Tricuspid Valve Normal tricuspid valve structure. There is mild tricuspid valve regurgitation. There is no evidence of pulmonary hypertension. Great Vessels The asc aorta is normal in size. Venous The inferior vena cava is dilated and collapses greater than 50% with inspiration. Pericardium/Pleural There is no evidence of pericardial effusion. Prior Study Comparison Changes noted compared to prior study dated: 04/05/2021. See comments on right ventricle. IVC further dilated. Measurements 2D Linear Measurements IVSd: 0.79 0.6-0.9/0.6-1.0 cm LVIDd: 4.39 3.9-5.3/4.2-5.9 cm LVIDd Index: 2.57 2.4-3.2/2.2-3.1 cm/m2 LVIDs: 2.55 2.0-3.6 cm LVPWd: 0.82 0.7-1.1 cm LA Diam: 2.80 2.7-3.8/3.0-4.0 cm LAIDs Index: 1.64 1.5-2.3 cm/m2 LV Mass: 135.75 67-162/88-224 g LV Mass Index: 79.39 43-95/49-115 g/m2 LVOT Diam: 2.10 3.0+(-)1.3 cm 2D Systolic Function EF 4C: 61.30 >55% Mitral Valve MV Pk E: 0.75 MV PK A: 0.38 MV Decel Time: 208.00 E/A: 2.00 E'Lateral: 11.50 E'Medial: 7.72 E/E' Med: 9.70 E/E' Lat: 6.50 PHT: 61.00 MVA PHT: 3.61 Decel Barton: 3.61 Aortic Valve AoV Pk Tray: 0.80 AoV Mn Tray: 0.58 AoV VTI: 0.23 AoV Pk Grad: 3.00 Aov Mn Grad: 1.00 JAVED Cont.VTI: 2.93 LVOT LVOT Pk Tray: 0.73 LVOT Mn Tray: 0.47 LVOT VTI: 0.19 LVOT Pk Grad: 2.00 LVOT Mn Grad: 1.00 LVOT Diam: 2.10 LVOT Area: 3.46 Diastolic Function MV Pk E: 0.75 MV Pk A: 0.38 E/A: 2.00 E'Medial: 7.72 E/E' Med: 9.70 E' Laterial: 11.50 E/E' Lat: 6.50 Right Ventricle TAPSE (mm): 31.30 TVS' Tray: 13.90 Tricuspid Valve TR Pk Tray: 2.50 TR Pk Grad: 25.00 RA Press: 8.00 RVSP: 33.00 Great Vessels Aorta Sinus of Valsalva: 4.18 2.0-3.[address] [place]: 2.93 1.7-3.4 cm Ao Asc: 3.80 2.1-3.4 cm Updated in Other Vendor System with Status of Final Jac Woodall MD electronically signed on 04/02/2023 9:32:03 AM with status of Final
== END ==
LOC: HO.CARD 12:51
PROVIDERS: PCP Family Medicine; Visit Provider Internal Medicine Cardiovascular Disease
DX: I48.0 Paroxysmal atrial fibrillation (principal)
CPT/HCPCS: 93306; 93356

== ENCOUNTER → 2023-03-31 12:54 | Outpatient (BNV) | payer MEDICARE, BC, SELFPAY | PROVIDERS: PCP Family Medicine; Visit Provider Internal Medicine | DX: I48.0 Paroxysmal atrial fibrillation (principal); I36.1 Nonrheumatic tricuspid (valve) insufficiency | CPT/HCPCS: 93306 ==

== ENCOUNTER 2023-05-06 13:49 | Outpatient (AMB) | payer MEDICARE, BC, SELFPAY ==
[2023-05-06 14:07] VITALS: BMI 19.0
--- NOTE | 2023-05-06 14:07 | A.OFFVIS_ITS ---
Intake VS Expanded 05/06/23 14:07 Height 5 ft 10 in Weight 132 lb 11.492 oz BMI 19.0 Intake Visit Reasons: monitor weight/CONFIRMED Allergies aspirin Allergy (Unknown, Verified 01/09/23 13:29) Unknown HPI Nutrition Presentation Details Pt presents today for nutrition f/u for failure to thrive in adult. Pt reports working on adding more foods in the diet Pt reports having allergic reaction to all foods leading to eczema on face, legs. 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 In the meantime Pt reports trying oatmeal and feels he does well with it pt reports increasing portions of foods he typically eats Oatmeal with oatmilk and berries in AM snack on peanut butter and jelly Lunch: mashed potato and chicken dinner: same as lunch or chicken and pasta snack on crackers and brayden or nuts drinks juices ; variety Pt reports his weigh at home last week at 126 lbs Walks once a week around neighborhood Most Recent Diabetes Results: No Data to Display [facility] Medical History Incomplete emptying of bladder Poor urinary stream H/O urinary retention Paroxysmal atrial fibrillation Surgical History History of radiofrequency ablation (RFA) procedure for cardiac arrhythmia Family History Father No problems noted. Mother Afib Social History Housing: House Patient Tobacco Use Status: Never used Tobacco e-Cigarette/Vaping Use: Never Used Second Hand Smoke Exposure: No service: Yes Current occupational status: retired Current occupational exposures/hazards: No Cognitive needs: No Hearing needs: No Vision needs: No Assessment & Plan Assessment & Plan (1) Underweight: Code(s): R63.6 - Underweight Plan: wt: 54 kg, 57kg (2 layers shirt and sweater) (03/03/2023), 60 kg (04/2023) , 2 layers of short sleeve shirt, jeans,sneakers (Pt reports weight at home in AM, w light clothing at 126 lbs (57 kg) ) Est kcal needs as per MSJ: 1500 (40% carb, 30% protein/fat) Est fluid needs as per 30 ml/d: 1600 Est prot per day as per 1 g/kg bw: 54 Recommend fiber intake : 8-10 g per day and gradually increase to 25-28 g per day for women and 35-38 g for men or as tolerated Recommend sodium intake per day : less than 2000 mg Educated patient on: ( R = reviewed V = verbalizes understanding N/R = needs review N/A = not applicable * Food sources of protein: R * Differences between types of fats and role in diet (mono on saturated fat fatty acids, saturated fatty acids, trans fats): R, MUFA options * Adding additional calories from nutrient dense foods : R * starches with protein (buckwheat/quinoa,oats, beans) * vitamin , mineral in foods and supplements Patient Instructions: consider taking vitamin E supplement 400 mg/day for 4-6 wks which may help reduce eczema Continue trying new foods , variety in the foods and having snacks in between Try diff starches with protein (oatmeal, quinoa, buckwheat ) Go for walks for relaxation, try senior center Coding Level of Care Code Nutr Indiv Subseq (78452) Diagnoses Underweight R63.6 Time Spent (min) 25
== END 2023-05-06 14:40 | disposition home or self-care (01) ==
PROVIDERS: PCP Family Medicine; Visit Provider Dietitian, Registered
DX: R63.6 Underweight (principal)

== ENCOUNTER → 2023-05-06 13:49 | Outpatient (BNVA) | payer MEDICARE, BC, SELFPAY | PROVIDERS: PCP Family Medicine; Visit Provider Dietitian, Registered | DX: R63.6 Underweight (principal) | CPT/HCPCS: 97803 ==

== ENCOUNTER 2023-05-09 09:13 | Outpatient (REF) | payer MEDICARE, BC, SELFPAY ==
[2023-05-09 11:29] LABS: MANUAL DIFF FLAG NO
[2023-05-09 11:30] LABS: Appearance Urine Cloudy; Color Urine Yellow; Glucose Urine UA Negative (Negative); Leukocyte Esterase Urine Negative (Negative); Nitrite Urine Negative (Negative); PH 5.5 (5.0-9.0); Specific Gravity - Urine 1.025 (1.005-1.025); Urine Blood Negative (Negative); Urine Ketones Negative (Negative); Urine Protein Negative (Neg-Trace)
[2023-05-09 11:42] LABS: Basophils Percent Auto 0.9 % (0-2); Eosinophils Absolute Auto 0.2 X10*3/uL (0.0-0.4); Eosinophils Percent Auto 4.2 % (0-4); Hematocrit 44.7 % (42.0-52.0); Hemoglobin 14.5 g/dl (14.0-18.0); Imm Gran Abs Auto 0.01 X10*3/uL (0.00-0.03); Imm Gran Pct Auto 0.2 % (0.0-0.4); Lymphocytes Absolute Auto 1.1 X10*3/uL (1.2-4.9); Lymphocytes Percent Auto 23.8 % (20-40); Mean Corpuscular HGB Conc 32.4 g/dl (31.0-36.0); Mean Corpuscular Hemoglobin 30.8 pg (27.0-33.0); Mean Corpuscular Volume 94.9 fL (80.0-98.0); Monocytes Absolute Auto 0.7 X10*3/uL (0.1-1.2); Monocytes Percent Auto 14.4 % (2-11); Neutrophils Absolute Auto 2.5 x10*3/uL (2.0-8.3); Neutrophils Percent Auto 56.5 % (45-73); Platelet Count 195 X10*3/uL (160-400); Red Blood Count 4.71 X10*6/uL (4.60-5.80); Red Cell Distribution Width 12.4 % (11.0-16.0); White Blood Count 4.5 X10*3/uL (4.8-10.8)
[2023-05-09 12:14] LABS: Alanine Aminotransferase 25 U/L (0-40); Alkaline Phosphatase 95 U/L (39-117); Anion Gap 11 (12-20); Aspartate Amino Transferase 27 U/L (5-37); Bilirubin Total 0.5 mg/dL (0.0-1.0); Blood Urea Nitrogen 30 mg/dL (9-16); Calcium 10.4 mg/dL (8.4-10.2); Carbon Dioxide 30 mmol/L (22-29); Chloride 103 mmol/L (96-108); Cholesterol 212 mg/dL (<200); Estimated Glomerular Filt Rate > 60; Glucose Fasting 92 mg/dL (60-99); HDL Cholesterol 75 mg/dL (>40); LDL Cholesterol Calculated 126 mg/dL (<100); Potassium 3.8 mmol/L (3.3-5.1); Sodium 140 mmol/L (135-145); Total Protein 6.7 g/dL (6.5-8.0); Triglycerides 59 mg/dL (<150)
[2023-05-09 12:22] LABS: TSH reflex Free T4 0.91 uIU/mL (0.32-4.0)
[2023-05-09 12:46] LABS: Prostate Specific Antigen Scr 0.28 ng/mL (<0.05-4.0)
[2023-05-09 12:49] LABS: Creatinine Urine 100.39 mg/dL; Microalbumin Urine < 5.0 mg/L
[2023-05-09 13:28] LABS: Erythrocyte Sedimentation Rate 7 MM/HR (0-15)
[2023-05-12 07:03] LABS: CRP High Sensitivity <0.3 mg/L
[2023-05-13 14:39] LABS: Anti Nuclear Antibody Screen NEGATIVE (NEGATIVE)
== END 2023-05-09 09:14 | disposition home or self-care (01) ==
LOC: HO.WFDLDS 09:13
PROVIDERS: Visit Provider Family Medicine
DX: Z00.00 Encounter for general adult medical examination without abnormal findings (principal); Z12.5 Encounter for screening for malignant neoplasm of prostate; R21 Rash and other nonspecific skin eruption; I10 Essential (primary) hypertension
CPT/HCPCS: 36415; 80053; 80061; 81003; 82043; 82570; 84153; 84443; 85025; 85652; 86038; 86141

== ENCOUNTER 2023-05-15 11:53 | Outpatient (AMB) | payer MEDICARE, BC, SELFPAY ==
[2023-05-15 11:59] VITALS: BP 124/72; PULSE 66; O2SAT 99; BMI 18.4
--- NOTE | 2023-05-15 11:59 | MHC.PC.OV ---
Vital Signs 05/15/23 11:59 Height 5 ft 10 in Weight 128 lb 4 oz BMI 18.4 BP 124/72 Blood Pressure Location Lt brachial Position Sitting Pulse 66 Pulse Source Pulse Oximeter Pulse Oximetry (%) 99 Oxygen Delivery Method Room Air Intake Visit Reasons: Extended exam with f/u labs and health maintenance Intake Note: Patient is here for extended exam and follow up on labs and health maintenance. Allergies aspirin Allergy (Unknown, Verified 05/15/23 12:01) Unknown Medication List - Last Reconciled 05/15/23 by Angel Hutrado MD apixaban (Eliquis) 5 mg PO BID betamethasone dipropionate 0.05% (Sernivo) 1 appl topical BID 30 days emollient combination no.32 1 appl topical BID PRN flecainide 100 mg PO Q12H 90 days metoprolol succinate ER 12.5 mg (1/2 x 25 mg) PO DAILY 90 days Tobacco use date assessed: 05/15/23 Fall risk assessment: No Falls in past year Last assessed Fall Risk: 05/15/23 Dental Screening Dental Screen Date: 05/15/23 Did you have a dental visit in the last 12 months?: Yes Did you have a dental problem in the last 6 months where you did not have access to dental care?: No Was dental information given to patient?: Patient has dentist HPI Extended exam with f/u labs and health maintenance HPI Details 77 y/o male presents for an extended exam with f/u labs and health maintenance. Labs were drawn 05/09/23. Reviewed labs with pt. Triglycerides 59. TC 212. LDL 126. HDL 75. Pt underweight - he notes he continues to f/u with a school psychometrist for this. He notes he continues to eat a healthy diet. HPI Comments History of Present Illness Details Documentation assistance for Angel Hurtado MD, was provided by Farooq Cantu,[employer] Teacher on 05/15/2023 12:40 PM NEHA. Emilia, Dr. Hurtado, have read, observed, and verified documentation. FORMERLY [facility] Medical History Incomplete emptying of bladder Poor urinary stream H/O urinary retention Paroxysmal atrial fibrillation Surgical History History of radiofrequency ablation (RFA) procedure for cardiac arrhythmia Family History Father No problems noted. Mother Afib Social History Housing: House Patient Tobacco Use Status: Never used Tobacco e-Cigarette/Vaping Use: Never Used Second Hand Smoke Exposure: No service: Yes Current occupational status: retired Current occupational exposures/hazards: No Cognitive needs: No Hearing needs: No Vision needs: No Questionnaire PHQ-9 Over the last 2 weeks, how often have you been bothered by any of the following problems? 1. Little interest or pleasure in doing things: not at all 2. Feeling down, depressed, or hopeless: not at all 3. Trouble falling or staying asleep, or sleeping too much: not at all 4. Feeling tired or having little energy: not at all 5. Poor appetite or overeating: not at all 6. Feeling bad about yourself - or that you are a failure or have let yourself or your family down: not at all 7. Trouble concentrating on things, such as reading the newspaper or watching television: not at all 8. Moving or speaking so slowly that other people could have noticed. Or the opposite - being so fidgety or restless that you have been moving around a lot more than usual: not at all 9. Thoughts that you would be better off or of hurting yourself in some way: not at all Total score: 0 Depression Screening Interpretation: Negative Depression Screening Done: Yes 28207 - PHQ-9 Billing: Yes Source: Developed by Drs. Thomas Gerard, Minerva Gonzales, Gunnar Baca and colleagues, with an educational juan from [employer]. Thrive Questionnaire Date Thrive assessed: 05/15/23 I am a: Patient What is your living situation today?: I have a steady place to live Within the past 12 months, did the food you bought not last and you didn't have the money to get more?: Never true Within the past 12 months, did you worry whether your food would run out before you got money to buy more?: Never true Do you have trouble paying for medicines?: No Do you have trouble getting transportation to medical appointments?: No Do you have trouble paying your heating and electricity bill?: No Do you have trouble taking care of your child, family member or friend?: No Do you have trouble with day-to-day activities such as bathing, preparing meals, shopping, managing finances, etc.?: No Are you currently unemployed and looking for a job?: No Are you interested in more education?: No THRIVE Score: 0 AUDIT C Alcohol Use Questionnaire (AUDIT-C) 1. How often do you have a drink containing alcohol?: Never 3. How often do you have six or more drinks on one occasion?: Never Total Score: 0 CARLOS-7 AMB Questionnaire CARLOS-7 Date CARLOS - 7 assessed: 05/15/23 Feeling nervous, anxious, or on edge: 0 = Not at all Not being able to stop or control worryin = Not at all Worrying too much about different things: 0 = Not at all Trouble relaxin = Not at all Being so restless that it is hard to sit still: 0 = Not at all Becoming easily annoyed or irritable: 0 = Not at all Feeling afraid as if something awful might happen: 0 = Not at all Total CARLOS-7 score (0-4 normal; 5-9 mild; 10-14 moderate; 15-21 severe): 0 Source: Developed by Drs. Thomas eGrard, Minerva Gonzales, Gunnar Baca and colleagues, with an educational juan from [employer]. CARLOS-7 Assessment Billing CARLOS-7 Assessment Tool: CARLOS-7 Assessment 62948 Review of Systems Const Denies chills, Denies fatigue, Denies fever(s), Denies headache(s) and Denies weakness Eyes Denies change in vision ENT Denies dizziness, Denies headache(s), Denies hearing loss, Denies nasal congestion, Denies sinus pain, Denies sinus pressure and Denies sore throat Card Denies chest pain, Denies lightheadedness, Denies dyspnea and Denies other (palpitations) Resp Denies cough, Denies dyspnea and Denies wheezing GI Denies abdominal pain, Denies melena, Denies hematochezia, Denies change in bowel habits, Denies dyspepsia and Denies nausea Denies hematuria and Denies dysuria Musc Denies abnormal gait, Denies myalgias, Denies arthralgias, Denies numbness and Denies tingling Skin/Breast Denies rash, Denies unusual bruising and Denies wounds Neuro Denies abnormal gait, Denies dizziness, Denies headache(s), Denies memory loss, Denies numbness, Denies Sensory deficit (Neuro), Denies tingling and Denies weakness Psych Denies anxiety, Denies depression and Denies memory loss Endo Denies cold intolerance, Denies fatigue, Denies heat intolerance, Denies polydipsia and Denies polyuria Mason/Lymph Denies easy bleeding and Denies easy bruising Aller/Immun Denies wheezing Physical exam (Primary Care) Vital Signs: Last Vital Signs Pulse 66 05/15/23 11:59 BP 124/72 05/15/23 11:59 Pulse Ox 99 05/15/23 11:59 Oxygen Delivery Method Room Air 05/15/23 11:59 BMI result Body Mass Index 18.4 Tobacco/Smoking Status: Tobacco use Status Tobacco use date assessed 05/15/23 05/15/23 12:06 Patient Tobacco Use Status Never used Tobacco 05/15/23 12:06 e-Cigarette/Vaping Use Never Used 05/15/23 12:06 PHQ-9: PHQ-9 Score PHQ-9: Total score 0 05/15/23 12:14 Depression Screening Interpretation: Negative Thrive Assessment: Date of Thrive Assessment Date Thrive assessed 05/15/23 05/15/23 12:14 Const General: no acute distress, well developed, alert and awake Nutritional Appearance: well nourished and underweight Orientation/consciousness: patient oriented x3 [facility] Head: Yes normocephalic and Yes atraumatic Ears: hearing grossly normal bilaterally and TM's normal bilaterally General nose exam: Normal external nose present and Normal nares present Mouth: Normal oral and palatal mucosa present and moist mucous membranes Teeth and gingiva: dentition normal Throat: Yes posterior oropharynx normal Eyes General: appearance normal, both eyes and all related structures Pupils: Equal, round and reactive pupils present and Pupil accommodation reflex normal EOM: EOMs intact bilaterally Neck Neck: Yes normal visual inspection, Yes no lymphadenopathy and Yes trachea midline Thyroid: Thyroid normal Carotids: no bruits Lymphatic: no lymphadenopathy noted Chest Chest palpation & inspection: normal inspection of the chest Resp Other: Distant breath sounds Effort & Inspection: normal respiratory effort Auscultation: clear to auscultation bilaterally Cardio Rate: regular rate Rhythm: regular rhythm Heart sounds: S1 normal heart sound present, S2 normal heart sound present, no gallops, no murmurs and no rubs Bruits: no abdominal aortic bruits and no carotid bruits GI Palpation (GI): No Abdominal aortic bruit present, Soft to palpation, nontender, No hepatosplenomegaly present and No Rebound tenderness present Auscultation: normal bowel sounds General: Yes no CVA tenderness Back/Spine/Pelvis Back: no CVA tenderness Cervical Spine: cervical ROM normal and No Cervical spine tenderness Thoracic/Lumbar Spine: thoraco-lumbar ROM normal, No pain with thoraco-lumbar ROM, No thoracic spinal tenderness and No lumbar spinal tenderness Skin Lesions: no lesions Rashes: no rashes Trauma: no lacerations or abrasions Wounds: no wounds Nails: normal Neuro General: patient oriented x3 Cranial nerves: Yes Equal, round and reactive pupils present Cognition (Neuro): normal cognition Gait exam (Neuro): Normal gait present Motor exam (neuro): 5/5 motor strength present throughout Sensory Exam: No Sensory deficit (Neuro) Deep tendon reflexes (DTR's): Right patellar reflex intensity grade: 2+ and Left patellar reflex intensity grade: 2+ Extrem General: Yes normal to inspection and No edema Psych Appearance: grossly normal Affect: normal affect Attitude: cooperative Thought process: Normal thought process present Assessment and Plan Assessment & Plan (1) Paroxysmal atrial fibrillation: Code(s): I48.0 - Paroxysmal atrial fibrillation Plan: Regular?rhythm.??He?is?now?on?Eliquis?and?followed?by?cardiology Stable Follow-up?with?Cardiology?as?recommended (2) Underweight: Code(s): R63.6 - Underweight Plan: Now?has?nutrition?consult. Has?lost?a?little?bit?of?weight.??I?encouraged?him?to?continue?to?look?for?high?calorie?foods. Exam?is?otherwise?okay Will?continue?to?follow (3) Rash: Code(s): R21 - Rash and other nonspecific skin eruption (4) At high risk for osteoporosis: Code(s): Z91.89 - Other specified personal risk factors, not elsewhere classified Plan: Patient?is?underweight?and?77?years?old High?risk?for?osteoporosis Check?bone?density?test (5) Screening for prostate cancer: Code(s): Z12.5 - Encounter for screening for malignant neoplasm of prostate Plan: PSA?is?within?normal?limits (6) Screening for colon cancer: Code(s): Z12.11 - Encounter for screening for malignant neoplasm of colon Plan: Patient?says?he?had?a?colonoscopy?in?2017.??Was?told?to?follow-up?in?10?years;?2026 Up-to-date (7) Adult general medical exam: Code(s): Z00.00 - Encounter for general adult medical examination without abnormal findings Plan: 77-year-old?male?presents?for?extended?exam Stable Orders: Orders XR DEXA axial skeleton Today M81.0 - Age-related osteoporosis without current pathological fracture, Z91.89 - Other specified personal risk factors, not elsewhere classified Coding Level of Care Code Est Pt Level 4 (25899) Diagnoses Paroxysmal atrial fibrillation I48.0 Underweight R63.6 Rash R21 At high risk for osteoporosis Z91.89 Screening for prostate cancer Z12.5 Screening for colon cancer Z12.11 Adult general medical exam Z00.00 Additional Codes CARLOS-7 Assessment Billing - CARLOS-7 Assessment Tool: CARLOS-7 Assessment 35158 ([id number])
== END 2023-05-15 13:04 | disposition home or self-care (01) ==
PROVIDERS: PCP Family Medicine; Visit Provider Family Medicine
DX: I48.0 Paroxysmal atrial fibrillation (principal); R63.6 Underweight; R21 Rash and other nonspecific skin eruption; Z91.89 Other specified personal risk factors, not elsewhere classified; Z12.5 Encounter for screening for malignant neoplasm of prostate; Z12.11 Encounter for screening for malignant neoplasm of colon; Z00.00 Encounter for general adult medical examination without abnormal findings
CPT/HCPCS: 99214

== ENCOUNTER 2023-07-01 13:16 | Outpatient (REF) | payer MEDICARE, BC, SELFPAY ==
--- NOTE | ~2023-07-01 | MM_ITS ---
EXAMINATION: BONE DENSITOMETRY CLINICAL INDICATION: Age-related osteoporosis without current pathological fracture. COMPARISON: This is the patient's baseline examination. TECHNIQUE: Using a Szl DXA System (software version: 13.1) manufactured by [employer], dual-energy x-ray absorptiometry was performed of the lumbar spine and left hip. The images are of good technical quality. Summary results are attached. FINDINGS: LEFT FEMUR, NECK: BMD 0.765 g/cm2, Z-score -0.4, T-score -2.3, osteopenia. LEFT FEMUR, TOTAL: BMD 0.746 g/cm2, Z-score -1.1, T-score -2.5, osteoporosis. AP SPINE L1-L4: BMD 0.715 g/cm2, Z-score -2.9, T-score -4.2, osteoporosis. IDENTIFIED RISK FACTORS: Height loss, low body weight. HISTORY OF FRACTURE: None listed. MEDICATIONS: Multivitamin. MM/XR DEXA axial skeleton IMPRESSION: 1. DIAGNOSIS: Severe osteoporosis based on the lowest T-score value of -4.2 in the lumbar spine applying World Health Organization criteria. 2. 10-YEAR FRACTURE RISK PREDICTION, FRAX: According to the guidelines, FRAX calculation should only be performed on patients in the osteopenia bone density category. Therefore, FRAX was not performed on this patient. 3. Treatment Recommendations: NOF guidelines recommend consideration for treatment in postmenopausal women and men age 50 and older presenting with the following: -A hip or vertebral (clinical or morphometric) fracture. -T-score less than or equal to -2.5 at the femoral neck or spine after appropriate evaluation to exclude secondary causes. -Low bone mass at the hip or spine and a 10-year fracture probability by FRAX of greater than or equal to 3% for hip fracture or greater than or equal to 20% for major osteoporotic fracture based on the [place] adapted WHO algorithm. 4. Other Recommendations: All treatment decisions require clinical judgment and consideration of individual patient factors, including patient preferences, comorbidities, previous drug use, risk factors not captured in the FRAX model (e.g. frailty, falls, vitamin D deficiency, increased bone turnover, interval significant decline in bone density) and possible under or overestimation of fracture risk by FRAX. Additional medical evaluation for secondary cause of low bone mineral density may be appropriate. FUTURE SCAN RECOMMENDATION: People with diagnosed cases of osteoporosis or at high risk for fracture should have regular bone mineral density tests. For patients eligible for Medicare, routine testing is allowed once every 2 years. The testing frequency can be increased to one year for patients who have rapidly progressing disease, those who are receiving or discontinuing medical therapy to restore bone mass, or have additional risk factors.
== END 2023-07-01 13:17 | disposition home or self-care (01) ==
LOC: HO.MAMMO 13:16
PROVIDERS: PCP Family Medicine; Visit Provider Family Medicine
DX: Z13.820 Encounter for screening for osteoporosis (principal); M81.0 Age-related osteoporosis without current pathological fracture; Z91.89 Other specified personal risk factors, not elsewhere classified
CPT/HCPCS: 77080

== ENCOUNTER → 2023-07-10 14:44 | Outpatient (BNVA) | payer BC, SELFPAY | PROVIDERS: PCP Family Medicine; Visit Provider Internal Medicine Cardiovascular Disease ==

== ENCOUNTER 2023-08-18 13:14 | Outpatient (AMB) | payer BC, SELFPAY ==
[2023-08-18 13:23] VITALS: BMI 18.4
--- NOTE | 2023-08-18 13:23 | A.OFFVIS_ITS ---
VS Expanded 08/18/23 13:23 Height 5 ft 10 in Weight 128 lb 4.944 oz BMI 18.4 Intake Visit Reasons: underweight/LVM Allergies aspirin Allergy (Unknown, Verified 05/15/23 12:01) Unknown Nutrition Presentation Details: Pt presents for MNT f/u for underweight Pt reports working on increasing food choices however developing rash /eczema so then he reduces on portions. (breads, milk, fruits, oils , peanuts, almonds ) Pt reports , he is on allergy shot treatments, a month worth BS Monitoring Most Recent Diabetes Results: Microalb/Creat Ratio TNP 05/09/23 Cholesterol 212 mg/dL (<200) H 05/09/23 HDL Cholesterol 75 mg/dL (>40) 05/09/23 Triglycerides 59 mg/dL (<150) 05/09/23 Creatinine 0.92 mg/dL (0.5-1.4) 05/09/23 Blood Urea Nitrogen 30 mg/dL (9-16) H 05/09/23 Sodium 140 mmol/L (135-145) 05/09/23 Potassium 3.8 mmol/L (3.3-5.1) 05/09/23 Chloride 103 mmol/L (96-108) 05/09/23 Carbon Dioxide 30 mmol/L (22-29) H 05/09/23 Calcium 10.4 mg/dL (8.4-10.2) H 05/09/23 AST 27 U/L (5-37) 05/09/23 ALT 25 U/L (0-40) 05/09/23 Total Protein 6.7 g/dL (6.5-8.0) 05/09/23 Albumin 4.0 g/dL (3.5-5.0) 05/09/23 PFSH Medical History Incomplete emptying of bladder Poor urinary stream H/O urinary retention Paroxysmal atrial fibrillation Surgical History History of radiofrequency ablation (RFA) procedure for cardiac arrhythmia Family History Father No problems noted. Mother Afib Social History Housing: House Patient Tobacco Use Status: Never used Tobacco e-Cigarette/Vaping Use: Never Used Second Hand Smoke Exposure: No service: Yes Current occupational status: retired Current occupational exposures/hazards: No Cognitive needs: No Hearing needs: No Vision needs: No Assessment & Plan Assessment & Plan (1) Underweight: Code(s): R63.6 - Underweight Category: Medical Plan: wt: 54 kg, 57kg (2 layers shirt and sweater) (03/03/2023), 60 kg (04/2023) , 2 layers of short sleeve shirt, jeans,sneakers (Pt reports weight at home in AM, w light clothing at 126 lbs (57 kg) ) , 58 kg (07/2023) Est kcal needs as per MSJ: 1500 + 500 (40% carb, 30% protein/fat) Est fluid needs as per 30 ml/d: 1600 Est prot per day as per 1 g/kg bw: 54 Recommend fiber intake : 8-10 g per day and gradually increase to 25-28 g per day for women and 35-38 g for men or as tolerated Recommend sodium intake per day : less than 2000 mg Educated patient on: ( R = reviewed V = verbalizes understanding N/R = needs review N/A = not applicable * Food sources of protein: R * Differences between types of fats and role in diet (mono on saturated fat fatty acids, saturated fatty acids, trans fats): R, MUFA options * Adding additional calories from nutrient dense foods : R * starches with protein (buckwheat/quinoa,oats, beans) * vitamin , mineral in foods and supplements * Increasing on calories by 250-500 of foods you know you can tolerate to prevent weight loss Patient Instructions: * Alternate between rice, potato and sweet potato , pasta and increase portion to 1/4 cup along with protein food 3-4 oz at meals * add honey to your cereal , /banana sandwich * keep hydrated by having water, almond milk , juices that you know you can tolerate Coding Level of Care Code Nutr Indiv Subseq (06103) Diagnoses Underweight R63.6 Time Spent (min) 30
== END 2023-08-18 13:54 | disposition home or self-care (01) ==
PROVIDERS: PCP Family Medicine; Visit Provider Dietitian, Registered
DX: R63.6 Underweight (principal)

== ENCOUNTER → 2023-08-18 13:14 | Outpatient (BNVA) | payer BC, SELFPAY | PROVIDERS: PCP Family Medicine; Visit Provider Dietitian, Registered | DX: R63.4 Abnormal weight loss (principal); Z68.1 Body mass index [BMI] 19.9 or less, adult; Z71.3 Dietary counseling and surveillance | CPT/HCPCS: 97803 ==

== ENCOUNTER 2023-09-03 09:41 | Outpatient (REF) | payer BC, SELFPAY ==
[2023-09-03 11:52] LABS: Alanine Aminotransferase 22 U/L (0-40); Albumin Level 3.9 g/dL (3.5-5.0); Alkaline Phosphatase 80 U/L (39-117); Anion Gap 11 (12-20); Aspartate Amino Transferase 23 U/L (5-37); Bilirubin Total 0.6 mg/dL (0.0-1.0); Blood Urea Nitrogen 19 mg/dL (9-16); Calcium 9.2 mg/dL (8.4-10.2); Carbon Dioxide 29 mmol/L (22-29); Chloride 104 mmol/L (96-108); Estimated Glomerular Filt Rate > 60; Glucose Random 87 mg/dL (60-115); Sodium 140 mmol/L (135-145); Total Protein 6.4 g/dL (6.5-8.0)
== END 2023-09-03 09:42 | disposition home or self-care (01) ==
LOC: HO.WFDLDS 09:41
PROVIDERS: Visit Provider Family Medicine
DX: R63.6 Underweight (principal)
CPT/HCPCS: 36415; 80053

== ENCOUNTER 2023-09-11 13:21 | Outpatient (AMB) | payer MEDICARE, BC, SELFPAY ==
[2023-09-11 13:26] VITALS: BP 108/66; PULSE 52; O2SAT 99; BMI 18.9
--- NOTE | 2023-09-11 13:26 | A.OFFPC_ITS ---
Vital Signs 09/11/23 13:26 Height 5 ft 10 in Weight 132 lb BMI 18.9 BP 108/66 Blood Pressure Location Rt brachial Position Sitting Pulse 52 Pulse Source Pulse Oximeter Pulse Oximetry (%) 99 Oxygen Delivery Method Room Air Intake Visit Reasons: Extended exam with f/u labs and health maintenance Intake Note: Patient is here for extended exam, and would vanessa to talk about stopping Alendronate. Allergies aspirin Allergy (Unknown, Verified 09/11/23 13:31) Unknown Tobacco use date assessed: 09/11/23 Fall risk assessment: No Falls in past year Last assessed Fall Risk: 09/11/23 Dental Screening Dental Screen Date: 05/15/23 HPI Extended exam with f/u labs and health maintenance HPI Details 78 y/o male presents for follow-up?chron ic?conditions Bone density test 07/01/23 showed osteoporosis. Pt reports he has not been able to tolerate alendronate. He has gained some weight - 128 lbs to 132 lbs since July. [facility] Medical History Incomplete emptying of bladder Poor urinary stream H/O urinary retention Paroxysmal atrial fibrillation Surgical History History of radiofrequency ablation (RFA) procedure for cardiac arrhythmia Family History Father No problems noted. Mother Afib Social History Housing: House Patient Tobacco Use Status: Never used Tobacco e-Cigarette/Vaping Use: Never Used Second Hand Smoke Exposure: No service: Yes Current occupational status: retired Current occupational exposures/hazards: No Cognitive needs: No Hearing needs: No Vision needs: No Questionnaire PHQ-9 Over the last 2 weeks, how often have you been bothered by any of the following problems? 1. Little interest or pleasure in doing things: not at all 2. Feeling down, depressed, or hopeless: not at all 3. Trouble falling or staying asleep, or sleeping too much: not at all 4. Feeling tired or having little energy: not at all 5. Poor appetite or overeating: not at all 6. Feeling bad about yourself - or that you are a failure or have let yourself or your family down: not at all 7. Trouble concentrating on things, such as reading the newspaper or watching television: not at all 8. Moving or speaking so slowly that other people could have noticed. Or the opposite - being so fidgety or restless that you have been moving around a lot more than usual: not at all 9. Thoughts that you would be better off or of hurting yourself in some way: not at all Total score: 0 Depression Screening Interpretation: Negative Depression Screening Done: Yes 29082 - PHQ-9 Billing: Yes Source: Developed by Drs. Thomas Gerard, Minerva Gonzales, Gunnar Baca and colleagues, with an educational juan from [employer] Thrive Questionnaire Date Thrive assessed: 09/11/23 I am a: Patient What is your living situation today?: I have a steady place to live Within the past 12 months, did the food you bought not last and you didn't have the money to get more?: Never true Within the past 12 months, did you worry whether your food would run out before you got money to buy more?: Never true Do you have trouble paying for medicines?: No Do you have trouble getting transportation to medical appointments?: No Do you have trouble paying your heating and electricity bill?: No Do you have trouble taking care of your child, family member or friend?: No Do you have trouble with day-to-day activities such as bathing, preparing meals, shopping, managing finances, etc.?: No Are you currently unemployed and looking for a job?: No Are you interested in more education?: No THRIVE Score: 0 AUDIT C Alcohol Use Questionnaire (AUDIT-C) 1. How often do you have a drink containing alcohol?: Never 3. How often do you have six or more drinks on one occasion?: Never Total Score: 0 CARLOS-7 AMB Questionnaire CARLOS-7 Date CARLOS - 7 assessed: 09/11/23 Feeling nervous, anxious, or on edge: 0 = Not at all Not being able to stop or control worryin = Not at all Worrying too much about different things: 0 = Not at all Trouble relaxin = Not at all Being so restless that it is hard to sit still: 0 = Not at all Becoming easily annoyed or irritable: 0 = Not at all Feeling afraid as if something awful might happen: 0 = Not at all Total CARLOS-7 score (0-4 normal; 5-9 mild; 10-14 moderate; 15-21 severe): 0 Source: Developed by Drs. Thomas Gerard, Minerva Gonzales, Gunnar Baca and colleagues, with an educational juan from [employer] CARLOS-7 Assessment Billing CARLOS-7 Assessment Tool: CARLOS-7 Assessment 10525 Review of Systems Const Denies chills, Denies fatigue, Denies fever(s), Denies headache(s) and Denies weakness Eyes Denies change in vision ENT Denies dizziness, Denies headache(s), Denies hearing loss, Denies nasal congestion, Denies sinus pain, Denies sinus pressure and Denies sore throat Card Denies chest pain, Denies lightheadedness, Denies dyspnea and Denies other (palpitations) Resp Denies cough, Denies dyspnea and Denies wheezing GI Denies abdominal pain, Denies melena, Denies hematochezia, Denies change in bowel habits, Denies dyspepsia and Denies nausea Denies hematuria and Denies dysuria Musc Denies abnormal gait, Denies myalgias, Denies arthralgias, Denies numbness and Denies tingling Skin/Breast Denies rash, Denies unusual bruising and Denies wounds Neuro Denies abnormal gait, Denies dizziness, Denies headache(s), Denies memory loss, Denies numbness, Denies Sensory deficit (Neuro), Denies tingling and Denies weakness Psych Denies anxiety, Denies depression and Denies memory loss Endo Denies cold intolerance, Denies fatigue, Denies heat intolerance, Denies polydipsia and Denies polyuria Mason/Lymph Denies easy bleeding and Denies easy bruising Aller/Immun Denies wheezing Physical exam (Primary Care) Vital Signs: Last Vital Signs Pulse 52 09/11/23 13:26 BP 108/66 09/11/23 13:26 Pulse Ox 99 09/11/23 13:26 Oxygen Delivery Method Room Air 09/11/23 13:26 BMI result Body Mass Index 18.9 Tobacco/Smoking Status: Tobacco use Status Tobacco use date assessed 09/11/23 09/11/23 13:32 Patient Tobacco Use Status Never used Tobacco 09/11/23 13:27 e-Cigarette/Vaping Use Never Used 09/11/23 13:27 PHQ-9: PHQ-9 Score PHQ-9: Total score 0 09/11/23 13:36 Depression Screening Interpretation: Negative Thrive Assessment: Date of Thrive Assessment Date Thrive assessed 09/11/23 09/11/23 13:36 Const General: no acute distress, well developed, alert and awake Nutritional Appearance: well nourished and underweight Orientation/consciousness: patient oriented x3 HENMT Head: Yes normocephalic and Yes atraumatic Ears: hearing grossly normal bilaterally and TM's normal bilaterally General nose exam: Normal external nose present and Normal nares present Mouth: Normal oral and palatal mucosa present and moist mucous membranes Teeth and gingiva: dentition normal Throat: Yes posterior oropharynx normal Eyes General: appearance normal, both eyes and all related structures Pupils: Equal, round and reactive pupils present and Pupil accommodation reflex normal EOM: EOMs intact bilaterally Neck Neck: Yes normal visual inspection, Yes no lymphadenopathy and Yes trachea midline Thyroid: Thyroid normal Carotids: no bruits Lymphatic: no lymphadenopathy noted Chest Chest palpation & inspection: normal inspection of the chest Resp Effort & Inspection: normal respiratory effort Auscultation: clear to auscultation bilaterally Cardio Rate: regular rate Rhythm: regular rhythm Heart sounds: S1 normal heart sound present, S2 normal heart sound present, no gallops, no murmurs and no rubs Bruits: no abdominal aortic bruits and no carotid bruits GI Palpation (GI): No Abdominal aortic bruit present, Soft to palpation, nontender, No hepatosplenomegaly present and No Rebound tenderness present Auscultation: normal bowel sounds General: Yes no CVA tenderness Back/Spine/Pelvis Back: no CVA tenderness Cervical Spine: cervical ROM normal and No Cervical spine tenderness Thoracic/Lumbar Spine: thoraco-lumbar ROM normal, No pain with thoraco-lumbar ROM, No thoracic spinal tenderness and No lumbar spinal tenderness Skin Lesions: no lesions Rashes: no rashes Trauma: no lacerations or abrasions Wounds: no wounds Nails: normal Neuro General: patient oriented x3 Cranial nerves: Yes Equal, round and reactive pupils present Cognition (Neuro): normal cognition Gait exam (Neuro): Normal gait present Motor exam (neuro): 5/5 motor strength present throughout Sensory Exam: No Sensory deficit (Neuro) Deep tendon reflexes (DTR's): Right patellar reflex intensity grade: 2+ and Left patellar reflex intensity grade: 2+ Extrem General: Yes normal to inspection and No edema Psych Appearance: grossly normal Affect: normal affect Attitude: cooperative Thought process: Normal thought process present Assessment and Plan Assessment & Plan (1) Underweight: Code(s): R63.6 - Underweight Plan: Weight?has?increased?a?little Protein?level?is?mildly?low?and?I?encouraged?him?to?work?on?increasing?the We?can?continue?to?monitor (2) Osteoporosis: Code(s): M81.0 - Age-related osteoporosis without current pathological fracture Plan: Severe?osteoporosis?in?lumbar?spine Patient?has?trialed?alendronate?but?it?is?bothering?his?stomach Will?refer?him?to?Rheumatology?to?discuss?options (3) Elevated LDL cholesterol level: Code(s): E78.00 - Pure hypercholesterolemia, unspecified Plan: Elevated?LDL?cholesterol.??His?other?lipids?are?okay Encouraged?diet?lower?in?saturated?fats?and?cholesterol (4) Wrist pain: Code(s): M25.539 - Pain in unspecified wrist (5) Screening for colon cancer: Code(s): Z12.11 - Encounter for screening for malignant neoplasm of colon Plan: Patient?says?he?had?a?colonoscopy?in?2016?at?[facility]?and?was?told?to?follow- up?in?2026 Up-to-date (6) Screening for prostate cancer: Code(s): Z12.5 - Encounter for screening for malignant neoplasm of prostate Plan: PSA?in?April?was?within?normal?range Continue?annual?screening Orders: Referrals Rheumatology Referral M81.0 - Age-related osteoporosis without current pathological fracture Coding Level of Care Code Est Pt Level 4 (14034) Diagnoses Underweight R63.6 Osteoporosis M81.0 Elevated LDL cholesterol level E78.00 Wrist pain M25.539 Screening for colon cancer Z12.11 Screening for prostate cancer Z12.5 Additional Codes CARLOS-7 Assessment Billing - CARLOS-7 Assessment Tool: CARLOS-7 Assessment 46897 ([id number])
== END 2023-09-11 14:13 | disposition home or self-care (01) ==
PROVIDERS: PCP Family Medicine; Visit Provider Family Medicine
DX: R63.6 Underweight (principal); M81.0 Age-related osteoporosis without current pathological fracture; E78.00 Pure hypercholesterolemia, unspecified; M25.539 Pain in unspecified wrist; Z12.11 Encounter for screening for malignant neoplasm of colon; Z12.5 Encounter for screening for malignant neoplasm of prostate
CPT/HCPCS: 99214

== ENCOUNTER 2024-01-13 12:49 | Outpatient (AMB) | payer BC, SELFPAY ==
--- NOTE | 2024-01-13 13:19 | MHC.OFFVIS ---
Vital Signs 01/13/24 13:20 Height 5 ft 10 in Weight 132 lb 4.438 oz BMI 19.0 BP 120/70 Blood Pressure Location Lt brachial Position Sitting Pulse 63 Intake Visit Reasons: 1 yr fu w/ ekg Intake Note: 1 year follow-up with ekg feeling good Veterinary Pharmacologist Required: No Allergies aspirin Allergy (Unknown, Verified 09/11/23 13:31) Unknown Medication List - Last Reconciled 01/13/24 by Riley Lehman MD apixaban (Eliquis) 5 mg PO BID betamethasone dipropionate 0.05% (Sernivo) 1 appl topical BID 30 days dupilumab (Dupixent) mg subcut emollient combination no.32 1 appl topical BID PRN flecainide 100 mg PO Q12H 90 days metoprolol succinate ER 12.5 mg (1/2 x 25 mg) PO DAILY 90 days HPI Comments Details: Es comes for follow-up. He said he is tired because over the last month and half his has been ill and he has doing a lot of duties at home. Otherwise he has had no cardiac symptoms. Remains fairly active for his age. Denies any prolonged palpitation irregular heartbeat. Denies any exertional chest pain or shortness of breath. Denies any heart failure symptoms. No bleeding issues or neurologic events. Maintains his activity level. PENDING SALE TO [facility] Medical History Incomplete emptying of bladder Poor urinary stream H/O urinary retention Paroxysmal atrial fibrillation Surgical History History of radiofrequency ablation (RFA) procedure for cardiac arrhythmia Family History Father No problems noted. Mother Afib Social History Housing: House Patient Tobacco Use Status: Never used Tobacco e-Cigarette/Vaping Use: Never Used Second Hand Smoke Exposure: No service: Yes Current occupational status: retired Current occupational exposures/hazards: No Cognitive needs: No Hearing needs: No Vision needs: No Review of Systems Const Denies chills, Denies fatigue, Denies fever(s), Denies frequent falls, Denies weakness, Denies weight gain and Denies weight loss ENT Denies dizziness Card Denies chest pain, Denies leg edema, Denies lightheadedness, Denies palpitations, Denies dyspnea, Denies dyspnea on exertion, Denies orthopnea and Denies other (loss of consciousness) Resp Denies cough, Denies dyspnea and Denies dyspnea on exertion GI Denies hematochezia and Denies change in stool character Musc Denies abnormal gait, Denies muscle weakness, Denies numbness, Denies radiating pain into limb and Denies tingling Neuro Denies abnormal gait, Denies dizziness, Denies frequent falls, Denies numbness, Denies tingling and Denies weakness Endo Denies fatigue and Denies palpitations Physical Exam Vital Signs: Last Vital Signs Pulse 63 01/13/24 13:20 BP 120/70 01/13/24 13:20 BMI result Body Mass Index 19.0 Const General: cooperative, comfortable, alert and awake Nutritional Appearance: thin Orientation/consciousness: patient oriented x3 Limitations: no limitations Neck Neck: Yes trachea midline, Yes supple and Yes no JVD Chest Chest palpation & inspection: normal inspection of the chest Resp Effort & Inspection: normal respiratory effort Auscultation: clear to auscultation bilaterally Cardio Jugular venous distension: no JVD Palpation: normal PMI Rate: regular rate Rhythm: regular rhythm Heart sounds: S1 normal heart sound present and S2 normal heart sound present Skin General skin exam: no rashes or lesions noted Neuro General: patient oriented x3 and no focal motor deficits Extrem General: Yes no clubbing, cyanosis or edema Psych Appearance: grossly normal Office Procedures EKG Details: EKG shows normal sinus rhythm with first-degree AV block otherwise normal EKG [id number], Complete Assessment & Plan Assessment & Plan (1) Paroxysmal atrial fibrillation: Code(s): I48.0 - Paroxysmal atrial fibrillation Category: Medical Plan: Highly symptomatic paroxysmal atrial fibrillation status post ablation but had recurrence on after that. Has been maintained on flecainide therapy. Has done extremely well with antiarrhythmic drug therapy with no hospitalization or with no recurrent symptoms. Continue aggressively rhythm control approach. Continue concomitant low-dose metoprolol therapy to reduce risk of rapid atrial flutter. Also continue full oral anticoagulation, currently on apixaban 5 mg b.i.d.. Semi annual renal function test is recommended. Continue participate in regular physical activity. Avoidance of stimulants and participate in stress mitigation strategies was discussed. He understands agrees. Follow up in the clinic in 6 months for EKG in 1 year with me with EKG. Thank you for allowing me to partake in his care Coding Level of Care Code Est Pt Level 4 (91970) Complex EM visit Add On G2211 Diagnoses Paroxysmal atrial fibrillation I48.0 CPT Codes EKG - CPT: 26870-[id number], Complete ([id number])
[2024-01-13 13:20] VITALS: BP 120/70; PULSE 63; BMI 19.0
== END 2024-01-13 13:56 | disposition home or self-care (01) ==
PROVIDERS: PCP Family Medicine; Visit Provider Internal Medicine Cardiovascular Disease
DX: I48.0 Paroxysmal atrial fibrillation (principal)
CPT/HCPCS: 93010; 99214

== ENCOUNTER → 2024-01-13 12:49 | Outpatient (BNVA) | payer BC, SELFPAY | PROVIDERS: PCP Family Medicine; Visit Provider Internal Medicine Cardiovascular Disease | DX: I48.0 Paroxysmal atrial fibrillation (principal); Z79.01 Long term (current) use of anticoagulants; Z79.899 Other long term (current) drug therapy | CPT/HCPCS: 93005 ==

== ENCOUNTER 2024-02-09 13:19 | Outpatient (AMB) | payer BC, SELFPAY ==
--- NOTE | 2024-02-09 13:31 | A.OFFVIS_ITS ---
VS Expanded 02/09/24 14:39 Height 5 ft 10 in Weight 130 lb 1.8 oz BMI 18.7 Intake Visit Reasons: Underweight/Left vm Allergies aspirin Allergy (Unknown, Verified 09/11/23 13:31) Unknown Nutrition Presentation Details: Pt presents for MNT f/u for underweight Pt reports keeping active with daily life activities Pt reports keeping hydrated by having water with most meals and an ensure (350 calories) at lunch daily Breakfast B typically : oatmeal made with almond milk , blueberries/bananas, sometimes adds peanut butter or nuts but not all the times snack may skip or has peanut butter and jelly sand almond milk or water L: Ensure (350 rudy) with sandwich on 2 pieces of whole grain (15 g bread) turkey or chicken hummus/avocado /salsa and lettuce tomatoes Dinner: potato/corn hamburg or chicken , green beans or another non starchy veg, 2-3 marva chocolates Reports weight at home at 124 lbs Pt reports his is on dupixent every 4 weeks and reports doing well BS Monitoring Most Recent Diabetes Results: Microalb/Creat Ratio TNP 05/09/23 Cholesterol 212 mg/dL (<200) H 05/09/23 HDL Cholesterol 75 mg/dL (>40) 05/09/23 Triglycerides 59 mg/dL (<150) 05/09/23 Creatinine 0.85 mg/dL (0.5-1.4) 09/03/23 Blood Urea Nitrogen 19 mg/dL (9-16) H 09/03/23 Sodium 140 mmol/L (135-145) 09/03/23 Potassium 4.0 mmol/L (3.3-5.1) 09/03/23 Chloride 104 mmol/L (96-108) 09/03/23 Carbon Dioxide 29 mmol/L (22-29) 09/03/23 Calcium 9.2 mg/dL (8.4-10.2) 09/03/23 AST 23 U/L (5-37) 09/03/23 ALT 22 U/L (0-40) 09/03/23 Total Protein 6.4 g/dL (6.5-8.0) L 09/03/23 Albumin 3.9 g/dL (3.5-5.0) 07/10/24 PFSH Medical History Incomplete emptying of bladder Poor urinary stream H/O urinary retention Paroxysmal atrial fibrillation Surgical History History of radiofrequency ablation (RFA) procedure for cardiac arrhythmia Family History Father No problems noted. Mother Afib Social History Housing: House Patient Tobacco Use Status: Never used Tobacco e-Cigarette/Vaping Use: Never Used Second Hand Smoke Exposure: No service: Yes Current occupational status: retired Current occupational exposures/hazards: No Cognitive needs: No Hearing needs: No Vision needs: No Assessment & Plan Assessment & Plan (1) Underweight: Code(s): R63.6 - Underweight Category: Medical Plan: wt: 124 lbs at home est kcal needs : 1900 + for weight gain (40% carb, 30% protein/fat) Est fluid needs as per 30 ml/d: 1700 Est prot per day as per 1 g/kg bw: 54 Recommend fiber intake : 8-10 g per day and gradually increase to 25-28 g per day for women and 35-38 g for men or as tolerated Recommend sodium intake per day : less than 2000 mg Educated patient on: ( R = reviewed V = verbalizes understanding N/R = needs review N/A = not applicable * Food sources of protein: R * Differences between types of fats and role in diet (mono on saturated fat fatty acids, saturated fatty acids, trans fats): R, MUFA options * Adding additional calories from nutrient dense foods : R * starches with protein (buckwheat/quinoa,oats, beans) * vitamin , mineral in foods and supplements * Increasing on calories by 250-500 of foods you know you can tolerate to prevent weight loss Patient Instructions: Try oatmilk in place of almond milk to make the oatmeal have a midmorning snack ( and alternate peanut butter sandwich, applepie, sherberts, hummus and crackers, ensure ) Coding Level of Care Code Nutr Indiv Subseq (27692) Diagnoses Underweight R63.6 Time Spent (min) 30
[2024-02-09 14:39] VITALS: BMI 18.7
== END 2024-02-09 13:56 | disposition home or self-care (01) ==
PROVIDERS: PCP Family Medicine; Visit Provider Dietitian, Registered
DX: R63.6 Underweight (principal)

== ENCOUNTER 2024-03-12 09:31 | Outpatient (REF) | payer BC, SELFPAY ==
[2024-03-12 11:28] LABS: MANUAL DIFF FLAG NO
[2024-03-12 11:34] LABS: Appearance Urine Clear; Color Urine Yellow; Glucose Urine UA Negative (Negative); Leukocyte Esterase Urine Negative (Negative); Nitrite Urine Negative (Negative); PH 7.5 (5.0-9.0); Urine Blood Negative (Negative); Urine Ketones Negative (Negative); Urine Protein Negative (Neg-Trace)
[2024-03-12 11:39] LABS: Basophils Absolute Auto 0.1 X10*3/uL (0.0-0.2); Basophils Percent Auto 1.1 % (0-2); Eosinophils Absolute Auto 0.1 X10*3/uL (0.0-0.4); Hematocrit 41.8 % (42.0-52.0); Hemoglobin 13.8 g/dl (14.0-18.0); Imm Gran Abs Auto 0.01 X10*3/uL (0.00-0.03); Imm Gran Pct Auto 0.2 % (0.0-0.4); Lymphocytes Absolute Auto 1.3 X10*3/uL (1.2-4.9); Lymphocytes Percent Auto 29.5 % (20-40); Mean Corpuscular Hemoglobin 30.6 pg (27.0-33.0); Mean Corpuscular Volume 92.7 fL (80.0-98.0); Mean Platelet Volume 10.1 fL (9.4-12.4); Monocytes Absolute Auto 0.7 X10*3/uL (0.1-1.2); Monocytes Percent Auto 14.8 % (2-11); Neutrophils Absolute Auto 2.3 x10*3/uL (2.0-8.3); Neutrophils Percent Auto 51.4 % (45-73); Platelet Count 185 X10*3/uL (160-400); Red Blood Count 4.51 X10*6/uL (4.60-5.80); Red Cell Distribution Width 12.6 % (11.0-16.0); White Blood Count 4.4 X10*3/uL (4.8-10.8)
[2024-03-12 11:55] LABS: Creatinine Urine 122.27 mg/dL; Microalbumin Urine < 5.0 mg/L
[2024-03-12 12:08] LABS: Alanine Aminotransferase 30 U/L (0-40); Albumin Level 3.8 g/dL (3.5-5.0); Alkaline Phosphatase 78 U/L (39-117); Anion Gap 6 (12-20); Aspartate Amino Transferase 34 U/L (5-37); Bilirubin Total 0.6 mg/dL (0.0-1.0); Blood Urea Nitrogen 16 mg/dL (9-16); Calcium 8.8 mg/dL (8.4-10.2); Carbon Dioxide 30 mmol/L (22-29); Chloride 105 mmol/L (96-108); Estimated Glomerular Filt Rate > 60; Glucose Random 96 mg/dL (60-115); Sodium 137 mmol/L (135-145); Total Protein 6.6 g/dL (6.5-8.0)
[2024-03-12 12:13] LABS: TSH reflex Free T4 0.91 uIU/mL (0.32-4.0)
== END 2024-03-12 09:32 | disposition home or self-care (01) ==
LOC: HO.WFDLDS 09:31
PROVIDERS: Visit Provider Family Medicine
DX: Z00.00 Encounter for general adult medical examination without abnormal findings (principal); R63.6 Underweight; I10 Essential (primary) hypertension
CPT/HCPCS: 36415; 80053; 81003; 82570; 84443; 85025

== ENCOUNTER 2024-04-19 15:33 | Outpatient (AMB) | payer MEDICARE, BC, SELFPAY ==
--- NOTE | 2024-04-19 16:05 | A.OFFPC_ITS ---
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[employer] Required: No Allergies aspirin Allergy (Unknown, Verified 04/19/24 16:06) Unknown Medication List - Last Reconciled 04/19/24 by Angel Hurtado MD apixaban (Eliquis) 5 mg PO BID betamethasone dipropionate 0.05% (Sernivo) 1 appl topical BID 30 days dupilumab (Dupixent) mg subcut flecainide 100 mg PO Q12H 90 days metoprolol succinate ER 12.5 mg (1/2 x 25 mg) PO DAILY 90 days Tobacco use date assessed: 09/11/23 Dental Screening Dental Screen Date: 05/15/23 HPI f/u hypertension, underweight & chronic conditions HPI Details 78 y/o male presents to f/u hypertension , underweight and chronic conditions. Blood pressure today 120/60, 66p. Hx of paroxysmal AFib. He is on metoprolol 12.5mg daily. Weight unchanged from prior in January - 130lbs with a BMI of 18.7. Had been following up with nutrition. Had been unable to tolerate alendronate for osteoporosis. [facility] Medical History Incomplete emptying of bladder Poor urinary stream H/O urinary retention Paroxysmal atrial fibrillation Surgical History History of radiofrequency ablation (RFA) procedure for cardiac arrhythmia Family History Father No problems noted. Mother Afib Social History Housing: House Patient Tobacco Use Status: Never used Tobacco e-Cigarette/Vaping Use: Never Used Second Hand Smoke Exposure: No service: Yes Current occupational status: retired Current occupational exposures/hazards: No Cognitive needs: No Hearing needs: No Vision needs: No Questionnaire PHQ-9 Over the last 2 weeks, how often have you been bothered by any of the following problems? 1. Little interest or pleasure in doing things: not at all 2. Feeling down, depressed, or hopeless: not at all 3. Trouble falling or staying asleep, or sleeping too much: not at all 4. Feeling tired or having little energy: not at all 5. Poor appetite or overeating: not at all 6. Feeling bad about yourself - or that you are a failure or have let yourself or your family down: not at all 7. Trouble concentrating on things, such as reading the newspaper or watching television: not at all 8. Moving or speaking so slowly that other people could have noticed. Or the opposite - being so fidgety or restless that you have been moving around a lot more than usual: not at all 9. Thoughts that you would be better off or of hurting yourself in some way: not at all Total score: 0 Source: Developed by Drs. Thomas Gerard, Minerva Gonzales, Gunnar Baca and colleagues, with an educational juan from [employer]. Thrive Questionnaire Date Thrive assessed: 04/13/24 I am a: Patient What is your living situation today?: I have a steady place to live Within the past 12 months, did the food you bought not last and you didn't have the money to get more?: Never true Within the past 12 months, did you worry whether your food would run out before you got money to buy more?: Never true Do you have trouble paying for medicines?: No Do you have trouble getting transportation to medical appointments?: No Do you have trouble paying your heating and electricity bill?: No Do you have trouble taking care of your child, family member or friend?: No Do you have trouble with day-to-day activities such as bathing, preparing meals, shopping, managing finances, etc.?: No Are you currently unemployed and looking for a job?: No Are you interested in more education?: No Please select the resources that you would like help with: None Currently or been in a relationship where the following occur: No concerns reported THRIVE Score: 0 AUDIT C Alcohol Use Questionnaire (AUDIT-C) 1. How often do you have a drink containing alcohol?: Never Total Score: 0 CARLOS-7 AMB Questionnaire CARLOS-7 Date CARLOS - 7 assessed: 09/11/23 Feeling nervous, anxious, or on edge: 0 = Not at all Not being able to stop or control worryin = Not at all Worrying too much about different things: 0 = Not at all Trouble relaxin = Not at all Being so restless that it is hard to sit still: 0 = Not at all Becoming easily annoyed or irritable: 0 = Not at all Feeling afraid as if something awful might happen: 0 = Not at all Total CARLOS-7 score (0-4 normal; 5-9 mild; 10-14 moderate; 15-21 severe): 0 Source: Developed by Drs. Thomas Gerard, Minerva Gonzales, Gunnar Baca and colleagues, with an educational juan from [employer]. Review of Systems Const Denies chills, Denies fatigue, Denies fever(s), Denies headache(s) and Denies weakness ENT Denies dizziness and Denies headache(s) Card Denies dyspnea Resp Denies cough, Denies dyspnea, Denies wheezing and Denies other (shortness of breath) Musc Denies numbness and Denies tingling Neuro Denies dizziness, Denies headache(s), Denies numbness, Denies tingling and Denies weakness Psych Denies anxiety and Denies depression Endo Denies fatigue Aller/Immun Denies wheezing Physical exam (Primary Care) Vital Signs: Last Vital Signs Temp 97.4 F 04/19/24 16:08 Pulse 66 04/19/24 16:08 Resp 12 04/19/24 16:08 BP 120/60 04/19/24 16:08 Pulse Ox 95 04/19/24 16:08 Oxygen Delivery Method Room Air 04/19/24 16:08 BMI result Body Mass Index 18.7 Tobacco/Smoking Status: Tobacco use Status Tobacco use date assessed 09/11/23 04/19/24 16:14 Patient Tobacco Use Status Never used Tobacco 04/19/24 16:14 e-Cigarette/Vaping Use Never Used 04/19/24 16:14 PHQ-9: PHQ-9 Score PHQ-9: Total score 0 04/19/24 16:28 Thrive Assessment: Date of Thrive Assessment Date Thrive assessed 04/13/24 04/19/24 16:14 Currently or been in a relationship where the following occur: No concerns reported Const General: well developed; No acute distress Nutritional Appearance: well nourished and underweight Orientation/consciousness: patient oriented x3 [facility] Head: Yes normocephalic and Yes atraumatic Eyes General: appearance normal, both eyes and all related structures Pupils: Equal, round and reactive pupils present EOM: EOMs intact bilaterally Resp Effort & Inspection: normal respiratory effort Auscultation: clear to auscultation bilaterally Cardio Rate: regular rate Rhythm: regular rhythm Heart sounds: S1 normal heart sound present, S2 normal heart sound present, no gallops, no murmurs and no rubs Neuro General: patient oriented x3 and gait normal Cranial nerves: Yes Equal, round and reactive pupils present Psych Affect: normal affect Coding Level of Care Code Est Pt Level 4 (67553) Diagnoses Underweight R63.6 Paroxysmal atrial fibrillation I48.0 Osteoporosis M81.0 Assessment & Plan Assessment & Plan (1) Underweight: Code(s): R63.6 - Underweight Category: Medical Plan: Patient?still?mildly?underweight?though?we?is?now?remaining?steady?at?130?lb. He has?an?ap pointment?with?the?staker surveying?and?now?has?recommendations?for?caloric?intake?a nd?protein?intake. He?is?using?ensure Continue?current?regimen Will?follow (2) Paroxysmal atrial fibrillation: Code(s): I48.0 - Paroxysmal atrial fibrillation Category: Medical Plan: Rhythm?controlled?on?flecainide Also?metoprolol?and?Eliquis Stable Follow-up?with?Cardiology?as?recommended (3) Osteoporosis: Code(s): M81.0 - Age-related osteoporosis without current pathological fracture Category: Medical Plan: Did?not?tolerate?alendronate Had?made?a?referral?to?Rheumatology?in?[place]?but?they?are?no?longer?taking ?patients Referred?to?Rheumatology?at?[facility] [place] Orders: Orders Complete Blood Count Auto Diff Today D64.9 - Anemia, unspecified, Z00.00 - Encounter for general adult medical examination without abnormal findings Vitamin B12 and Folate Today D64.9 - Anemia, unspecified, E53.8 - Deficiency of other specified B group vitamins Reticulocyte Count Today D64.9 - Anemia, unspecified Basic Metabolic Panel Today D64.9 - Anemia, unspecified, Z00.00 - Encounter for general adult medical examination without abnormal findings IRON PROFILE Today D64.9 - Anemia, unspecified TSH reflex Free T4 Today D64.9 - Anemia, unspecified, Z00.00 - Encounter for general adult medical examination without abnormal findings
[2024-04-19 16:08] VITALS: BP 120/60; PULSE 66; RESP 12; TEMP 36.3; O2SAT 95; BMI 18.7
== END 2024-04-19 16:44 | disposition home or self-care (01) ==
PROVIDERS: PCP Family Medicine; Visit Provider Family Medicine
DX: R63.6 Underweight (principal); I48.0 Paroxysmal atrial fibrillation; M81.0 Age-related osteoporosis without current pathological fracture

== ENCOUNTER → 2024-04-19 15:33 | Outpatient (BNVA) | payer MEDICARE, BC, SELFPAY | PROVIDERS: PCP Family Medicine; Visit Provider Family Medicine | DX: R63.6 Underweight (principal); I48.0 Paroxysmal atrial fibrillation; M81.0 Age-related osteoporosis without current pathological fracture | CPT/HCPCS: 99212 ==

== ENCOUNTER 2024-07-08 14:53 | Outpatient (AMB) | payer BC, SELFPAY ==
--- NOTE | 2024-07-08 15:05 | AM.OFFVISNUR ---
Intake Visit Reasons: EKG Allergies aspirin Allergy (Unknown, Verified 04/19/24 16:06) Unknown Nursing Note pt is here for nurse visit with ekg pt is on flecainide 100 mg Q12H pt has no complaints ekg keft on Dr SABRINA diallo for review Office Procedures EKG [id number], Complete Coding CPT Codes EKG - CPT: 51896-[id number], Complete ([id number])
== END 2024-07-08 15:16 | disposition home or self-care (01) ==
LOC: HO.HCS 14:54
PROVIDERS: PCP Family Medicine; Visit Provider Internal Medicine Cardiovascular Disease
DX: I44.0 Atrioventricular block, first degree (principal)
CPT/HCPCS: 93010

== ENCOUNTER → 2024-07-08 14:53 | Outpatient (BNVA) | payer BC, SELFPAY | PROVIDERS: PCP Family Medicine; Visit Provider Internal Medicine Cardiovascular Disease | DX: R00.1 Bradycardia, unspecified (principal) | CPT/HCPCS: 93005 ==

== ENCOUNTER 2024-08-09 13:21 | Outpatient (AMB) | payer BC, SELFPAY ==
--- NOTE | 2024-08-09 13:32 | A.OFFVIS_ITS ---
VS Expanded 08/09/24 13:38 Height 5 ft 10 in Weight 129 lb BMI 18.5 Intake Visit Reasons: monitor weight Allergies aspirin Allergy (Unknown, Verified 04/19/24 16:06) Unknown Nutrition Presentation Details: Pt presents for MNT f/u for underweight wt hx 12/2022 at 119 lbs , gradually gaining wt today 07/2024 at 129 lbs (reports at home wt fluctuates between 121-125 lbs ) Pt reports having ensure high protein once a day with a meal - feels full fast Has almond milk with meals 2 times a day Acknowledges reducing/omitting mid after noon snack (p.b/jelly sand) d/t feeling full fast - BS Monitoring Most Recent Diabetes Results: Microalb/Creat Ratio TNP 03/12/24 Creatinine, (0.5-1.4) 0.77 mg/dL 03/12/24 BUN, (9-16) 16 mg/dL 03/12/24 Sodium, (135-145) 137 mmol/L 03/12/24 Potassium, (3.3-5.1) 4.0 mmol/L 03/12/24 Chloride, (96-108) 105 mmol/L 03/12/24 Carbon Dioxide, (22-29) 30 mmol/L H 03/12/24 Calcium, (8.4-10.2) 8.8 mg/dL 03/12/24 AST, (5-37) 34 U/L 03/12/24 ALT, (0-40) 30 U/L 03/12/24 Total Protein, (6.5-8.0) 6.6 g/dL 03/12/24 Albumin, (3.5-5.0) 3.8 g/dL 03/12/24 [facility] Medical History Incomplete emptying of bladder Poor urinary stream H/O urinary retention Paroxysmal atrial fibrillation Surgical History History of radiofrequency ablation (RFA) procedure for cardiac arrhythmia Family History Father No problems noted. Mother Afib Social History Housing: House Patient Tobacco Use Status: Never used Tobacco e-Cigarette/Vaping Use: Never Used Second Hand Smoke Exposure: No service: Yes Current occupational status: retired Current occupational exposures/hazards: No Cognitive needs: No Hearing needs: No Vision needs: No Assessment & Plan Assessment & Plan (1) Underweight: Code(s): R63.6 - Underweight Category: Medical Plan: wt hx 12/2022 at 119 lbs , gradually gaining wt today 07/2024 at 129 lbs (reports at home fluctuates between 121-125 lbs wt: 124 lbs at home est kcal needs : 1900 + for weight gain (40% carb, 30% protein/fat) Est fluid needs as per 30 ml/d: 1700 Est prot per day as per 1 g/kg bw: 54 Recommend fiber intake : 8-10 g per day and gradually increase to 25-28 g per day for women and 35-38 g for men or as tolerated Recommend sodium intake per day : less than 2000 mg Educated patient on: ( R = reviewed V = verbalizes understanding N/R = needs review N/A = not applicable * Food sources of protein: R * Differences between types of fats and role in diet (mono on saturated fat fatty acids, saturated fatty acids, trans fats): R, MUFA options * Adding additional calories from nutrient dense foods : R * starches with protein (buckwheat/quinoa,oats, beans) * vitamin , mineral in foods and supplements * Increasing on calories by 250-500 of foods you know you can tolerate to prevent weight loss Patient Instructions: Have a cup of milk with protein/carb/fat example fairlife milk with the meals in place of almond milk (or have 1 additional ensure per day as mid afternoon snack Coding Level of Care Code Nutr Indiv Subseq (87104) Diagnoses Underweight R63.6 Time Spent (min) 20
[2024-08-09 13:38] VITALS: BMI 18.5
== END 2024-08-09 13:58 | disposition home or self-care (01) ==
LOC: HO.ENCR 13:21
PROVIDERS: PCP Family Medicine; Visit Provider Dietitian, Registered
DX: R63.6 Underweight (principal)

== ENCOUNTER → 2024-08-09 13:21 | Outpatient (BNVA) | payer BC, SELFPAY | PROVIDERS: PCP Family Medicine; Visit Provider Dietitian, Registered | DX: R63.6 Underweight (principal); Z71.3 Dietary counseling and surveillance | CPT/HCPCS: 97803 ==

== ENCOUNTER 2024-10-08 09:15 | Outpatient (REF) | payer BC, SELFPAY ==
--- OUTSIDE RECORDS SUMMARY | 2024-10-08 09:30 | XMS_ITS ---
Author Name [facility] Organization Unknown Care Team Organization Name Specialty Phone Email Start Date End Da te [facility] Primary Care 01/01/2022 4
--- OUTSIDE RECORDS SUMMARY | 2024-10-08 09:30 | XMS_ITS | Clinical Summary ---
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 Not on moira e 06/21/2022 Are you concerned about learning? Not on file 06/21/2022 No 06/21/2022 No 06/21/2022 Digital Access Answer Date Recorded No 07/20/2022 No 07/20/2022 No 07/20/2022 Reliable internet access at home? Not on file 07/20/2022 Device with a working camera? Not on file Sex and Gender Information Value Date Recorded Sex Assigned at Not on file Legal Sex Male 12:11 PM EDT Gender Identity Not on file Sexual Orientation Not on file Plan of Treatment Health Maintenance Due Date Last Done Comments Adult Td,Tdap Booster 1947 LIPID PANEL 1947 DEPRESSION SCREENING 1959 SMOKING Hx and SMOKELESS TOB ACCO SCREENING 07/02/1960 HEPATITIS C SCREENING 07/02/1965 PNEUMOCOCCAL VACCINES (50+ y ears) (1 of 1 - PCV) 07/02/1997 ZOSTER VACCINES (1 of 2) 07/02/1997 RSV VACCINE (1 - 1-dose 75+ series) 07/02/2022 COVID-19 VACCINE (2 - 2023-2 5 season) 2023 04/22/2020 HEPATITIS A VACCINES Aged Out No long er eligible based on patient's age to complete this topic HIB VACCINES Aged Out No longer eligi ble based on patient's age to complete this topic MENINGOCOCCAL VACCINES (ACWY) Aged Out No longer eligible based on patient's age to complete this topic MENINGOCOCCAL VACCINES (B) Aged Out N o longer eligible based on patient's age to complete this topic Medical Devices Not on file Insurance [facility] MEDICARE PART A & B [facility] MEDICARE PART A & B MEDICARE PART A & B MEDICARE PART A & B MEDICARE PART A & B MEDICARE PART A & B [facility] MEDICARE PART A & B [facility] MEDICARE PART A & B Member Subscriber Plan / Payer ( fective 2012-Present) Name:Evan Mar Member ID:[id number] Relation to Subscriber:Self Name:Evan Mar Subscriber ID:[id number] Payer ID:[id number] Group ID:Not on file Type:Medicare Address: [employer] [facility] [address] [place] [phone] [facility] MEDICARE PART A & B Member Subscriber Plan / Payer ( fective 2012-Present) Name:Evan Mar Member ID:[id number] Relation to Subscriber:Self Name:Evan Mar Subscriber ID:[id number] Payer ID:[id number] Group ID:Not on file Type:Medicare Address: [facility] [employer] [facility] [address] [place] [address] Care Teams Cattle Manager Relationship Specialty Start Date End Date Herman Odell MD [address] [place] [phone] PCP - General Internal Medicine 12/12/17 Additional Source Comments The information contained in this document represents components of the legal health record. It is not the complete legal health record.[facility]
[2024-10-08 11:16] LABS: MANUAL DIFF FLAG NO
[2024-10-08 11:22] LABS: Hematocrit 40.9 % (42.0-52.0); Hemoglobin 13.9 g/dl (14.0-18.0); Imm Gran Abs Auto 0.01 X10*3/uL (0.00-0.03); Imm Gran Pct Auto 0.2 % (0.0-0.4); Lymphocytes Absolute Auto 1.1 X10*3/uL (1.2-4.9); Mean Corpuscular HGB Conc 34.0 g/dl (31.0-36.0); Mean Corpuscular Hemoglobin 31.2 pg (27.0-33.0); Mean Corpuscular Volume 91.7 fL (80.0-98.0); NRBC Abs Auto 0.000 X10*3/uL (0.0-0.012); NRBC Pct Auto 0.0 /100WBC (0.0-0.2); Platelet Count 178 X10*3/uL (160-400); Red Blood Count 4.46 X10*6/uL (4.60-5.80); Reticulocytes Absolute 0.030 X10*6/uL (0.026-0.095); White Blood Count 4.4 X10*3/uL (4.8-10.8)
[2024-10-08 11:40] LABS: Anion Gap 11 (12-20); Blood Urea Nitrogen 15 mg/dL (9-16); Calcium 9.0 mg/dL (8.4-10.2); Carbon Dioxide 28 mmol/L (22-29); Chloride 103 mmol/L (96-108); Estimated Glomerular Filt Rate > 60; Iron 117 mcg/dL (45-160); Percent Iron Saturation 46 % (15-50); Potassium 4.0 mmol/L (3.3-5.1); Sodium 138 mmol/L (135-145); Total Iron Binding Capacity 256 mcg/dL (228-428); Unsaturated Iron Binding 139 ug/dL
[2024-10-08 12:03] LABS: Folate 14.8 ng/mL (> or = 4.0); Vitamin B12 534 pg/mL (200-900)
== END 2024-10-08 09:16 | disposition home or self-care (01) ==
LOC: HO.WFDLDS 09:15
PROVIDERS: Visit Provider Family Medicine
DX: Z00.00 Encounter for general adult medical examination without abnormal findings (principal); E53.8 Deficiency of other specified B group vitamins; D64.9 Anemia, unspecified
CPT/HCPCS: 36415; 80048; 82607; 82746; 83540; 84443; 85025; 85045

== ENCOUNTER 2024-10-18 14:21 | Outpatient (AMB) | payer MEDICARE, BC, SELFPAY ==
--- NOTE | 2024-10-18 14:26 | A.OFFPC_ITS ---
Vital Signs 10/18/24 14:27 Height 5 ft 10 in Weight 128 lb BMI 18.4 BP 114/66 Blood Pressure Location Lt brachial Position Sitting Pulse 66 Pulse Source Pulse Oximeter Pulse Oximetry (%) 100 Oxygen Delivery Method Room Air Intake Visit Reasons: f.u chronic conditions Allergies aspirin Allergy (Unknown, Verified 10/18/24 14:27) Unknown Tobacco use date assessed: 10/18/24 Fall risk assessment: No Falls in past year Last assessed Fall Risk: 10/18/24 Dental Screening Dental Screen Date: 10/18/24 Did you have a dental visit in the last 12 months?: Yes Did you have a dental problem in the last 6 months where you did not have access to dental care?: No Was dental information given to patient?: Patient has dentist HPI f.u chronic conditions HPI Details 79 [facility] BP today 114/66, 66p. He is on metoprolol 12.5mg daily. Pt had a mild anemia - stable. BMI today 18.4. Pt notes he feels well and has been exercising 3x a week and keeps himself active. [facility] Medical History Incomplete emptying of bladder Poor urinary stream H/O urinary retention Paroxysmal atrial fibrillation Surgical History History of radiofrequency ablation (RFA) procedure for cardiac arrhythmia Family History Father No problems noted. Mother Afib Social History Housing: House Patient Tobacco Use Status: Never used Tobacco e-Cigarette/Vaping Use: Never Used Second Hand Smoke Exposure: No service: Yes Current occupational status: retired Current occupational exposures/hazards: No Cognitive needs: No Hearing needs: No Vision needs: No Questionnaire PHQ-9 Over the last 2 weeks, how often have you been bothered by any of the following problems? 1. Little interest or pleasure in doing things: not at all 2. Feeling down, depressed, or hopeless: not at all 3. Trouble falling or staying asleep, or sleeping too much: not at all 4. Feeling tired or having little energy: not at all 5. Poor appetite or overeating: not at all 6. Feeling bad about yourself - or that you are a failure or have let yourself or your family down: not at all 7. Trouble concentrating on things, such as reading the newspaper or watching television: not at all 8. Moving or speaking so slowly that other people could have noticed. Or the opposite - being so fidgety or restless that you have been moving around a lot more than usual: not at all 9. Thoughts that you would be better off or of hurting yourself in some way: not at all Total score: 0 Source: Developed by Drs. Thomas Gerard, Minerva Gonzales, Gunnar Baca and colleagues, with an educational juan from [employer]. Thrive Questionnaire Date Thrive assessed: 04/13/24 I am a: Patient What is your living situation today?: I have a steady place to live Within the past 12 months, did the food you bought not last and you didn't have the money to get more?: Never true Within the past 12 months, did you worry whether your food would run out before you got money to buy more?: Never true Do you have trouble paying for medicines?: No Do you have trouble getting transportation to medical appointments?: No Do you have trouble paying your heating and electricity bill?: No Do you have trouble taking care of your child, family member or friend?: No Do you have trouble with day-to-day activities such as bathing, preparing meals, shopping, managing finances, etc.?: No Are you currently unemployed and looking for a job?: No Are you interested in more education?: No Please select the resources that you would like help with: None Currently or been in a relationship where the following occur: No concerns reported THRIVE Score: 0 AUDIT C Alcohol Use Questionnaire (AUDIT-C) 1. How often do you have a drink containing alcohol?: Never 3. How often do you have six or more drinks on one occasion?: Never Total Score: 0 CARLOS-7 AMB Questionnaire CARLOS-7 Date CARLOS - 7 assessed: 04/19/24 Feeling nervous, anxious, or on edge: 0 = Not at all Not being able to stop or control worryin = Not at all Worrying too much about different things: 0 = Not at all Trouble relaxin = Not at all Being so restless that it is hard to sit still: 0 = Not at all Becoming easily annoyed or irritable: 0 = Not at all Feeling afraid as if something awful might happen: 0 = Not at all Total CARLOS-7 score (0-4 normal; 5-9 mild; 10-14 moderate; 15-21 severe): 0 Source: Developed by Drs. Thomas Gerard, Minerva Gonzales, Gunnar Baca and colleagues, with an educational juan from [employer]. Review of Systems Const Denies chills, Denies fatigue, Denies fever(s), Denies headache(s) and Denies weakness ENT Denies dizziness and Denies headache(s) Card Denies dyspnea Resp Denies cough, Denies dyspnea, Denies wheezing and Denies other (shortness of breath) Musc Denies numbness and Denies tingling Neuro Denies dizziness, Denies headache(s), Denies numbness, Denies tingling and Denies weakness Psych Denies anxiety and Denies depression Endo Denies fatigue Aller/Immun Denies wheezing Physical exam (Primary Care) Vital Signs: Last Vital Signs Pulse 66 10/18/24 14:27 BP 114/66 10/18/24 14:27 Pulse Ox 100 10/18/24 14:27 Oxygen Delivery Method Room Air 10/18/24 14:27 BMI result Body Mass Index 18.4 Tobacco/Smoking Status: Tobacco use Status Tobacco use date assessed 10/18/24 10/18/24 14:28 Patient Tobacco Use Status Never used Tobacco 10/18/24 14:28 e-Cigarette/Vaping Use Never Used 10/18/24 14:28 PHQ-9: PHQ-9 Score PHQ-9: Total score 0 10/18/24 14:28 Thrive Assessment: Date of Thrive Assessment Date Thrive assessed 04/13/24 10/18/24 14:28 Currently or been in a relationship where the following occur: No concerns reported Const General: well developed; No acute distress Nutritional Appearance: well nourished Orientation/consciousness: patient oriented x3 HENMT Head: Yes normocephalic and Yes atraumatic Eyes General: appearance normal, both eyes and all related structures Pupils: Equal, round and reactive pupils present EOM: EOMs intact bilaterally Resp Other: Distant breath sounds Effort & Inspection: normal respiratory effort Neuro General: patient oriented x3 and gait normal Cranial nerves: Yes Equal, round and reactive pupils present Psych Affect: normal affect Coding Level of Care Code Est Pt Level 4 (14694) Diagnoses Mild anemia D64.9 Underweight R63.6 Immunization counseling Z71.85 Assessment & Plan Assessment & Plan (1) Mild anemia: Code(s): D64.9 - Anemia, unspecified Category: Medical Plan: Stable Iron levels okay We can continue to monitor (2) Underweight: Code(s): R63.6 - Underweight Category: Medical Plan: Stable Continue protein supplementation (3) Immunization counseling: Code(s): Z71.85 - Encounter for immunization safety counseling Category: Medical Plan: Discussed pneumonia and flu shots. Discussed RSV which he is already received. Discussed COVID shot Discussed shingles shot He can check with his pharmacy
[2024-10-18 14:27] VITALS: BP 114/66; PULSE 66; O2SAT 100; BMI 18.4
--- OUTSIDE RECORDS SUMMARY | 2024-10-18 15:57 | XMS_ITS | Clinical Summary ---
Author Organization [facility] Address [address] [place] [address] Phone Care Team Providers Care Radiation Control Specialist Name Role Phone Herman Odell MD Primary [...] topic Medical Devices Not on file Insurance [facility] MEDICARE PART A & B [facility] MEDICARE PART A & B MEDICARE PART A & B MEDICARE PART A & B MEDICARE PART A & B MEDICARE PART A & B [facility] MEDICARE PART A & B [facility] MEDICARE PART A & B [facility] MEDICARE PART A & B Member Subscriber Plan / Payer ( fective 2012-Present) Name:Evan Mar Member ID:[id number] Relation to Subscriber:Self Name:Evan Mar Subscriber ID:[id number] Payer ID:[id number] Group ID:Not on file Type:Medicare Address: [facility] [employer] [facility] [address] [place] [address] Care Teams Radiation Control Specialist Relationship Specialty Start Date End Date Herman Odell MD [address] [place] [id number] PCP - General Internal Medicine 12/12/17 Additional Source Comments The information contained in this document represents components of the legal health record. It is not the complete legal health record.[facility]
== END 2024-10-18 15:38 | disposition home or self-care (01) ==
LOC: HO.HMCFM 14:22
PROVIDERS: PCP Family Medicine; Visit Provider Family Medicine
DX: D64.9 Anemia, unspecified (principal); R63.6 Underweight; Z71.85 Encounter for immunization safety counseling

== ENCOUNTER → 2024-10-18 14:21 | Outpatient (BNVA) | payer MEDICARE, BC, SELFPAY | PROVIDERS: PCP Family Medicine; Visit Provider Family Medicine | DX: D64.9 Anemia, unspecified (principal); R63.6 Underweight | CPT/HCPCS: 99212 ==

== ENCOUNTER 2025-01-11 13:39 | Outpatient (AMB) | payer BC, SELFPAY ==
[2025-01-11 13:44] VITALS: BP 110/70; PULSE 63; BMI 18.3
--- NOTE | 2025-01-11 13:44 | MHC.OFFVIS ---
Vital Signs 01/11/25 13:44 Height 5 ft 10 in Weight 127 lb 13.89 oz BMI 18.3 BP 110/70 Blood Pressure Location Lt brachial Position Sitting Pulse 63 Intake Visit Reasons: 1 yr follow up Intake Note: 1 year follow-up ekg feeling good Client Reporting Associate Required: No Allergies aspirin Allergy (Unknown, Verified 10/18/24 14:27) Unknown Medication List - Last Reconciled 01/11/25 by Riley Lehman MD apixaban (Eliquis) 5 mg PO BID betamethasone dipropionate 0.05% (Sernivo) 1 appl topical BID 30 days flecainide 100 mg PO Q12H metoprolol succinate ER 12.5 mg (1/2 x 25 mg) PO DAILY tralokinumab-ldrm (Adbry) mg subcut HPI Comments Details: Evan comes for follow-up. He has been doing very well from cardiac perspective. Denied any symptoms of palpitation or atrial fibrillation. He is only issues is maintaining his weight. He continues to exercise and has no exertional chest pain or shortness of breath. Denies any lightheadedness, syncope. No bleeding issues or neurologic events. [facility] Medical History Incomplete emptying of bladder Poor urinary stream H/O urinary retention Paroxysmal atrial fibrillation Surgical History History of radiofrequency ablation (RFA) procedure for cardiac arrhythmia Family History Father No problems noted. Mother Afib Social History Housing: House Patient Tobacco Use Status: Never used Tobacco e-Cigarette/Vaping Use: Never Used Second Hand Smoke Exposure: No service: Yes Current occupational status: retired Current occupational exposures/hazards: No Cognitive needs: No Hearing needs: No Vision needs: No Review of Systems Const Denies chills, Denies fatigue, Denies fever(s), Denies frequent falls, Denies weakness, Denies weight gain and Denies weight loss ENT Denies dizziness Card Denies chest pain, Denies leg edema, Denies lightheadedness, Denies palpitations, Denies dyspnea, Denies dyspnea on exertion, Denies orthopnea and Denies other (loss of consciousness) Resp Denies cough, Denies dyspnea and Denies dyspnea on exertion GI Denies hematochezia and Denies change in stool character Musc Denies abnormal gait, Denies muscle weakness, Denies numbness, Denies radiating pain into limb and Denies tingling Neuro Denies abnormal gait, Denies dizziness, Denies frequent falls, Denies numbness, Denies tingling and Denies weakness Endo Denies fatigue and Denies palpitations Physical Exam Vital Signs: Last Vital Signs Pulse 63 01/11/25 13:44 BP 110/70 01/11/25 13:44 BMI result Body Mass Index 18.3 Const General: cooperative, comfortable, alert and awake Nutritional Appearance: thin Orientation/consciousness: patient oriented x3 Limitations: no limitations Neck Neck: Yes trachea midline, Yes supple and Yes no JVD Chest Chest palpation & inspection: normal inspection of the chest Resp Effort & Inspection: normal respiratory effort Auscultation: clear to auscultation bilaterally Cardio Jugular venous distension: no JVD Palpation: normal PMI Rate: regular rate Rhythm: regular rhythm Heart sounds: S1 normal heart sound present and S2 normal heart sound present Skin General skin exam: no rashes or lesions noted Neuro General: patient oriented x3 and no focal motor deficits Extrem General: Yes no clubbing, cyanosis or edema Psych Appearance: grossly normal Office Procedures EKG Details: EKG shows normal sinus rhythm with normal EKG [id number], Complete Assessment & Plan Assessment & Plan (1) Paroxysmal atrial fibrillation: Code(s): I48.0 - Paroxysmal atrial fibrillation Category: Medical Plan: Highly symptomatic paroxysmal atrial fibrillation without any clinical recurrence on current dose of flecainide. He has done well with rhythm control approach. Continue the same. Needs concomitant low-dose metoprolol therapy which she is tolerating well. Continue full oral anticoagulation, currently on Eliquis 5 mg b.i.d.. Continue maintain activity level as tolerated. Avoidance of stimulants was discussed. Stress mitigation strategies were discussed. Currently not having any concerning cardiac symptoms. Will follow up in the clinic in 6 months for EKG in 1 year with me. Thank you for allowing me to partake in his care Coding Level of Care Code Est Pt Level 4 (35642) Complex EM visit Add On G2211 Diagnoses Paroxysmal atrial fibrillation I48.0 CPT Codes EKG - CPT: 57486-[id number], Complete ([id number])
== END 2025-01-11 14:09 | disposition home or self-care (01) ==
LOC: HO.HCS 13:40
PROVIDERS: PCP Family Medicine; Visit Provider Internal Medicine Cardiovascular Disease
DX: I48.0 Paroxysmal atrial fibrillation (principal)
CPT/HCPCS: 93010; 99214

== ENCOUNTER → 2025-01-11 13:39 | Outpatient (BNVA) | payer BC, SELFPAY | PROVIDERS: PCP Family Medicine; Visit Provider Internal Medicine Cardiovascular Disease | DX: I48.0 Paroxysmal atrial fibrillation (principal) | CPT/HCPCS: 93005 ==

== ENCOUNTER 2025-02-15 09:12 | Outpatient (REF) | payer MEDICARE, BC, SELFPAY ==
--- OUTSIDE RECORDS SUMMARY | 2025-02-15 09:49 | XMS_ITS | Clinical Summary ---
Author Organization [facility] Address [address] [place] [address] Phone Care Team Providers Care Impersonator Character Name Role Phone Herman Odell MD Primary [...] DEPRESSION SCREENING 1959 SMOKING Hx and SMOKELESS TOBACCO SCREENING 07/02/1960 HEPATITIS C SCREENING 07/02/1965 PNEUMOCOCCAL VACCINES (50+ years) (1 of 1 - PCV) 07/02/1997 ZOSTER VACCINES (1 of 2) 07/02/1997 RSV VACCINE (1 - 1-dose 75+ series) 07/02/2022 INFLUENZA VACCINE (#1) 2024 , 12/16/2017, 12/27/2016 COVID-19 VACCINE (2 - 2024-2 6 season) 2024 04/22/2020 HEPATITIS A VACCINES Aged Out No [...] topic Medical Devices Not on file Insurance [employer] [facility] Address: [facility] [address] [place] [address] MEDICARE PART A & B [employer] [facility] MEDICARE PART A & B MEDICARE PART A & B [facility] MEDICARE PART A & B MEDICARE PART A & B [facility] MEDICARE [facility] A & B [facility] MEDICARE PART A & B [facility] MEDICARE PART A & [place] [address] [place] [address] MEDICARE PART A & B Care Teams Impersonator Character Relationship Specialty Start Date End Date Herman Odell MD [address] [place] [phone] PCP - General Internal Medicine 12/12/17 Additional Source Comments The information contained in this document represents components of the legal health record. It is not the complete legal health record.[facility]
[2025-02-15 11:17] LABS: MANUAL DIFF FLAG NO
[2025-02-15 11:22] LABS: Appearance Urine Clear; Glucose Urine UA Negative (Negative); PH 6.5 (5.0-9.0); Specific Gravity - Urine 1.015 (1.005-1.025)
[2025-02-15 11:38] LABS: Hematocrit 40.5 % (42.0-52.0); Hemoglobin 13.2 g/dl (14.0-18.0); Imm Gran Abs Auto 0.01 X10*3/uL (0.00-0.03); Imm Gran Pct Auto 0.2 % (0.0-0.4); Lymphocytes Absolute Auto 1.3 X10*3/uL (1.2-4.9); Mean Corpuscular HGB Conc 32.6 g/dl (31.0-36.0); Mean Corpuscular Hemoglobin 30.5 pg (27.0-33.0); Mean Corpuscular Volume 93.5 fL (80.0-98.0); NRBC Abs Auto 0.000 X10*3/uL (0.0-0.012); NRBC Pct Auto 0.0 /100WBC (0.0-0.2); Platelet Count 189 X10*3/uL (160-400); Red Blood Count 4.33 X10*6/uL (4.60-5.80); White Blood Count 4.3 X10*3/uL (4.8-10.8)
[2025-02-15 12:07] LABS: Alanine Aminotransferase 21 U/L (0-40); Albumin Level 4.1 g/dL (3.5-5.0); Alkaline Phosphatase 71 U/L (39-117); Anion Gap 9 (12-20); Aspartate Amino Transferase 29 U/L (5-37); Blood Urea Nitrogen 18 mg/dL (9-16); Calcium 9.1 mg/dL (8.4-10.2); Carbon Dioxide 28 mmol/L (22-29); Chloride 107 mmol/L (96-108); Cholesterol 197 mg/dL (<200); Estimated Glomerular Filt Rate > 60; HDL Cholesterol 65 mg/dL (>40); Potassium 3.8 mmol/L (3.3-5.1); Sodium 140 mmol/L (135-145); Total Protein 6.4 g/dL (6.5-8.0); Triglycerides 73 mg/dL (<150)
[2025-02-15 12:27] LABS: Folate 11.8 ng/mL (> or = 4.0); Vitamin B12 453 pg/mL (200-900)
== END 2025-02-15 09:13 | disposition home or self-care (01) ==
LOC: HO.WFDLDS 09:12
PROVIDERS: Visit Provider Family Medicine
DX: Z00.00 Encounter for general adult medical examination without abnormal findings (principal); Z12.5 Encounter for screening for malignant neoplasm of prostate; I10 Essential (primary) hypertension; E53.8 Deficiency of other specified B group vitamins; E55.9 Vitamin D deficiency, unspecified
CPT/HCPCS: 36415; 80053; 80061; 81003; 82043; 82306; 82570; 82607; 82746; 84153; 84443; 85025